=== PATIENT | female | born 1970 | race Caucasian/White ===

== ENCOUNTER 2016-09-09 17:51 | Inpatient (IN) | payer OTHER ==
[~2016-09-09 17:51] MED LIST: PIPERACILLIN/TAZOB 3.375 GM/50 ML PRE-DOCKED IVPB ONE
[2016-09-09] MEDS ORDERED: ONDANSETRON 4 MG/2 ML VIAL IVPB PRN (18:10)
[2016-09-09] MEDS ORDERED: SODIUM CHLORIDE 1,000 ML IV SCH (18:15)
[2016-09-09 18:18] VITALS: BMI 24.0
[2016-09-09] MEDS ORDERED: SODIUM CHLORIDE 500 ML IV STA ×2 (18:34→19:08)
--- NOTE | 2016-09-09 18:40 | CONSULT ---
Consultation: REQUESTING PROVIDER: CONSULT REQUEST: We have been asked to medically evaluate this patient for ( specify). HISTORY OF PRESENT ILLNESS: 46 /y o f with PMH of cervical cancer s/p tracheolectomy , lap band ligation, cholecystectomy was transferred from [facility]. Patient states that she had vomiting, pain abdomen and diarrhoea which started on wednesday. Patient states that she ate her food and after 2 hour she had vomiting, vomiting contain undigested food particles, not foul smelling. Patient had couple of episodes of vomiting after that. patient also states that she had pain abdomen which started after vomiting and is present all over the abdomen 8/10 in intensity, non radiating, get relieved by pain mediactions, sharp in quality, constant in nature. Patient also states that she had 2 episodes of diarrhoea on wednesday and then she didnt have any bowel movements. patient is not passing flatus, Denies abdominal distension, blood in stool , mucus in stool. She also reports shaking chills 2 days ago. Denies eating out in restaurant. Patient states that she was admitted in [facility] yesterday and after getting medicines her pain, nausea and vomiting had decreased. patient was started on zosyn in [facility] denies burning micturatrtion, chest pain, sob. PSH : lap band, cholecystectomy, cervical cerclage, appendectomy PMH: cervical cancer smoking : stopped 5 years ago, smoked for 10 years ( 1/2 pack a day ) alcohol: occasional REVIEW OF SYSTEMS: CONSTITUTIONAL: Absent: fever, chills, diaphoresis, generalized weakness, malaise, loss of appetite, weight change HEENT: Absent: rhinorrhea, CARDIOVASCULAR: Absent: chest pain, syncope, palpitations, peripheral edema RESPIRATORY: Absent: cough, shortness of breath, dyspnea with exertion, orthopnea, wheezing, stridor, hemoptysis GASTROINTESTINAL: Absent: abdominal pain, abdominal distension, nausea, vomiting, diarrhea, constipation, melena, hematochezia GENITOURINARY: Absent: dysuria, frequency, urgency, hesitancy, hematuria, flank pain, genital pain MUSCULOSKELETAL: Absent: myalgia, arthralgia, joint swelling, back pain, neck pain SKIN: Absent: rash, itching, pallor HEMATOLOGIC/IMMUNOLOGIC: Absent: easy bleeding, easy bruising, ENDOCRINE: Absent: unexplained weight gain, unexplained weight loss, NEUROLOGIC: Absent: headache, focal weakness or paresthesias, dizziness, unsteady gait, PSYCHIATRIC: Absent: anxiety, depression, PHYSICAL EXAMINATION Vital Signs - 24 hr 09/09/16 18:09 Temperature 98.9 F Pulse Rate 93 H Respiratory 18 Rate Blood Pressure 82/59 GENERAL: Awake, alert, and fully oriented, in no acute distress. HEAD: Normal with no signs of trauma. EYES: Pupils equal, round and reactive to light, sclera anicteric, conjunctiva clear. No lid lag. EARS, NOSE, THROAT: Ears normal, nares patent, oropharynx clear without exudates. Dry mucous membranes. NECK: Normal range of motion, LUNGS: Breath sounds equal, clear to auscultation bilaterally. No wheezes, and no crackles. HEART: s1s2 normal, tachycardia, non murmur ABDOMEN: Soft, non distended, tenderness in b/l lower quadrant of abdomen and supra pubic area, no guarding, no rigidity, Bowel sounds absent. MUSCULOSKELETAL: Normal range of motion at all joints. No bony deformities or tenderness. No CVA tenderness. UPPER EXTREMITIES: 2+ pulses, warm, well-perfused. No cyanosis. No clubbing No peripheral edema. LOWER EXTREMITIES: 2+ pulses, warm, well-perfused. No calf tenderness. No peripheral edema. NEUROLOGICAL: Cranial nerves II-XII intact. Normal speech. PSYCHIATRIC: Cooperative. Good eye contact. SKIN: Warm, dry, normal turgor, Active Medications Generic Name Dose Route Start Last Admin Trade Name Freq PRN Reason Stop Dose Admin Chlorhexidine Gluconate 1 applic 09/09/16 22:00 Hibiclens For Decolonization - TP HS KAVIN Enoxaparin Sodium 40 mg 09/10/16 10:00 Lovenox - SQ DAILY KAVIN Pantoprazole Sodium 40 mg/ 100 mls @ 200 mls/hr 09/10/16 10:00 Sodium Chloride IVPB DAILY KAVIN Sodium Chloride 1,000 mls @ 125 mls/hr 09/09/16 18:15 Normal Saline - IV ASDIR KAVIN Metronidazole 100 mls @ 100 mls/hr 09/10/16 02:00 Flagyl 500mg Premixed Ivpb - IVPB Q8H-IV KAVIN Morphine Sulfate 4 mg 09/09/16 18:10 Morphine Injection - IVPUSH Q6H PRN PAIN Mupirocin 1 applic 09/09/16 22:00 Bactroban Ointment (For Decolonization) - NS 09/14/16 21:59 BID KAVIN Ondansetron HCl 4 mg 09/09/16 18:10 Zofran Injection IVPB Q6H PRN NAUSEA Piperacillin Sod/Tazobactam Sod 3.375 gm 09/10/16 02:00 Zosyn 3.375gm Ivpb (Pre-Docked) IVPB 09/10/16 02:01 ONCE ONE Protocol [facility] reports 09/08/16 wbc 19.8 hb 12.8 [id number] na 136, bun 21, cr 1.29, lactic acid 2.1 lipase 23 amylase 30 alk phos [address] abdomen from [facility] : mild ascities and mucosal thickening of the small bowel loops. enterocolitis can not be excluded. ASSESSMENT/PLAN: severe sepsis with pain abdomen, nausea, vomiting wbc 19, bp 82/59, lactic acid 2.1, tachycardia Iv fluid 125ml/hr ns Iv antibiotics zosyn and metronidazole monitor vitals monitor intake/ output follow cbc, cmp, mg, phos, ua, amylase, lipase, lactic acid follow X ray abdomen keep map > 65 follow blood culture, urine culture follow stool for ova, parasite, wbc mophine 4mg q6h prn for pain zofran for nausea and vomiting bunny could be pre renal IV fluid 125 ml/hr monitor creatnine avoid nephrotoxic drugs fluid : ns 125 ml/hr electrolyte ; follow nutrition ; npo for now dvt pro: lovenox gi pro ; protonix dispo: admit in icu Dispo: We will continue to follow the patient. Thank you for this consultative opportunity. Visit type - Emergency Visit Emergency Visit: Yes ED Registration Date: 09/09/16 Care time: The patient presented to the Emergency Department on the above date and was hospitalized for further evaluation of their emergent condition. - New Patient This patient is new to me today: Yes Date on this admission: 09/09/16 - Critical Care Critical Care patient: Yes Total Critical Care Time (in minutes): 60 Critical Care Statement: The care of this patient involved high complexity decision making to prevent further life threatening deterioration of the patient 's condition and/or to evalute & treat vital organ system(s) failure or risk of failure.
[2016-09-09] MEDS ORDERED: SODIUM CHLORIDE 1,000 ML IV STA ×2 (18:58→19:00)
[2016-09-09] MEDS ORDERED: PIPERACILLIN/TAZOB 3.375 GM/50 ML PRE-DOCKED IVPB ONE (19:15)
[2016-09-09] MEDS ORDERED: METRONIDAZOLE 500 MG PREMIXED 100 ML IVPB SCH (19:15)
--- NOTE | 2016-09-09 19:19 | CONSULT ---
Consult - text type - Consultation Consultation Note: 46 y.o. female with lap-band for 2 years Pt presents to [facility] 09/08/16 with N/V and lower abdominal pain Pt had pulse of 114, BP of 89/59 (on 09/09/16) Pt received IV fluid, IV Zosyn Initial labs showed WBC of 19.8 Today, WBC was 7.9 However , BUN/CR increased to 21/1.299FROM 18/1.13) CT scan at [facility] showed inflammation around the band, dilated SB loops ( ? ileus) No obvious signs of abscess Past History: Pt with band slippage on x-ray on 07/24/16 Insurance approval obtained AND BAND SCHEDULED TO BE REVISED ON 09/10/16 Pt transferred from [facility] at 5:30 PM Pt awake, moderate discomfort from generalized abdominal pain Pt states she is hungry, thirsty [id number], BP-89/54 P/E- Abd- distended, slight voluntary guarding, mild tenderness on palpation in RLQ and LLQ Discussed with Dr Barboza, pt's PCP Will give IV fluid bolus Will re-start Zosyn Q8H Will check labs I- Sepsis, possible secondary to Lap-Band P- OR on 09/10 for Band Revision/Possible Band Removal Cont IV antibiotics IV fluids to normalize labs, V/S Discussed at length with pt and . They understand that band may have to be removed
[2016-09-09] MEDS ORDERED: HYDROmorphone HCL CARPU-JECT 1 MG/1 ML DISP.SYRIN IVPUSH PRN (19:24)
[2016-09-09 19:55] LABS: MCH 29.3 pg (25.7-33.7); MCHC 33.7 g/dl (32.0-36.0); MEAN CELL VOLUME 86.8 fl (80-96); MEAN PLT VOLUME 7.9 fl (7.5-11.1); PLATELET COUNT 268 K/MM3 (134-434); RDW 14.2 % (11.6-15.6); WHITE BLOOD COUNT 13.4 K/mm3 (4.0-10.0)
[2016-09-09 20:08] LABS: INR 1.55 (0.82-1.09); PROTHROMBIN TIME (PATIENT) 17.2 SEC (9.98-11.88)
[2016-09-09 20:11] LABS: ACTIVATED PTT 30.6 SECONDS (26.9-34.4)
--- NOTE | 2016-09-09 20:29 | CONSULT ---
Consult Consult Specialty:: Pulm/CC - History of Present Illness History of Present Illness: Pt is a 46yr old woman with PMHx including cervical cancer now s/p tracheolectomy, cholestcystectomy and lap band ligation with slippage shown on xray from 07/24 (per report). Pt was scheduled for revision of lapband on 09/[address] Ware that she had flu-like symptoms since Wednesday and was concerned about having procedure while sick. At [facility] on 09/08 pt with tachycardia to 114, hypotension to 89/59 on 09/09 and leukocytosis. Pt transferred to [facility] ICU for further management. Upon assessment in the ICU pt denies current chest pain/sob/n/v. Pt states she had diarrhea that stopped on Wednesday and has not had a bowel movement or eaten since, endorses being hungry. - History Source History Provided By: Patient, Medical Record Limitations to Obtaining History: No Limitations - Past Medical History ...LMP: 12/13/14 ...: No - Alcohol/Substance Use Hx Alcohol Use: No - Smoking History Smoking history: Former smoker Have you smoked in the past 12 months: No Aproximately how many cigarettes per day: 10 If you are a former smoker, when did you quit?: 5 yrs.ago Home Medications - Allergies Allergies/Adverse Reactions: Allergies Allergy/AdvReac Type Severity Reaction Status Date / Time No Known Allergies Allergy Verified 01/01/15 09:57 - Home Medications Home Medications: Ambulatory Orders Ascorbic Acid [Vitamin C -] 500 mg PO DAILY 01/01/15 Calcium Carbonate/Vitamin D3 [Calcium 600 with Vit D Tab] 1 each PO DAILY Krill/Om-3/Dha/Epa/Phospho/Ast [Krill Oil 500 mg Softgel] 1 each PO DAILY Multivitamins [Tab-A-Vit -] 1 tab PO DAILY 01/01/15 Vitamin E 1,000 unit PO DAILY 01/01/15 Oxycodone HCl/Acetaminophen [Percocet 5-325 mg Tablet] 1 tab PO Q6H PRN #20 tablet MDD 4 01/27/16 Review of Systems - Review of Systems Cardiovascular: reports: Shortness of Breath. denies: Chest Pain Respiratory: reports: SOB Gastrointestinal: reports: Abdominal Pain, Diarrhea Genitourinary: denies: Dysuria Physical Exam Vital Signs: Vital Signs Period Temp Pulse Resp BP Sys/Peng Pulse Ox Last 24 Hr 98.9 F 93-99 18-20 82-89/54-59 Intake & Output 09/06/16 09/07/16 09/08/16 09/09/16 23:59 23:59 23:59 23:59 Weight 115 lb Constitutional: Yes: Well Nourished, Anxious Eyes: Yes: WNL, PERRL HENT: Yes: Atraumatic Neck: Yes: Trachea Midline Cardiovascular: Yes: Tachycardia (low 100s, sinus on tele), S1, S2 Respiratory: No: Rales, Rhonchi, SOB, Wheezes Gastrointestinal: Yes: Normal Bowel Sounds, Soft, Tenderness (diffuse) ...Rectal Exam: Yes: Deferred Musculoskeletal: Yes: WNL Extremities: Yes: WNL Edema: No Peripheral Pulses WNL: (+2 bilateral pedal pulses) Integumentary: Yes: WNL Neurological: Yes: WNL Psychiatric: Yes: WNL Labs: Abnormal Lab Results 09/09/16 09/09/16 19:00 19:00 WBC 13.4 H RBC 3.26 L Hgb 9.5 L Hct 28.3 L INR 1.55 H Assessment/Plan Pt is a 46yr old woman with PMHx including cervical cancer now s/p tracheolectomy, cholestcystectomy and lap band ligation with slippage. Pt now in the ICU for management of sepsis (likely abdominal source) pending surgical intervention on 09/10. Pulm: -o2 support prn for sat >94% -Incentive spirometer ID: -f/u cultures -Continue Zosyn/Flagyl -f/u lactic acid Renal -IVF -Replete electrolytes prn -I/Os Cardiac -Tachycardia likely in setting of dehydration and discomfort -EKG -f/u enzymes Surgery: -NPO after midnight for procedure 09/10 -Dr. Ware following Neuro -Pain management Prophylactic -DVT
[2016-09-09 20:39] LABS: ALBUMIN 2.1 g/dl (3.4-5.0); CALCIUM 7.2 mg/dL (8.5-10.1); MAGNESIUM 1.4 mg/dL (1.8-2.4); TOT PROT 5.3 g/dl (6.4-8.2)
[2016-09-09 20:43] LABS: BILIRUBIN,TOTAL 0.5 mg/dL (0.2-1.0); CREATININE 1.1 mg/dL (0.55-1.02)
[2016-09-09 20:57] LABS: TROPONIN I < 0.02 ng/ml (0.00-0.05)
[2016-09-09] MEDS ORDERED: MAGNESIUM SULF 50% (8.12 MEQ/2 ML-1 GM VIAL) IVPB ONE (21:11)
[2016-09-09] MEDS ORDERED: CHLORHEXIDINE GLUCONATE 4% CLEANSER FOR DECOLONIZATION TP SCH (22:00)
[2016-09-09] MEDS: METRONIDAZOLE 500 MG PREMIXED 100 ML IVPB SCH (22:06)
[2016-09-09] MEDS: morphine CARPU-JECT 4 MG/1 ML DISP.SYRIN IVPUSH PRN (22:26)
[2016-09-09] MEDS: MUPIROCIN 2% TOPICAL OINTMENT FOR DECOLONIZATION NS SCH (22:26)
[2016-09-09] MEDS ORDERED: SIMETHICONE 80 MG TAB.CHEW (FP) PO ONE (23:00)
[2016-09-10] MEDS ORDERED: PIPERACILLIN/TAZOB 3.375 GM 50 ML IVPB SCH (02:00)
[2016-09-10] MEDS: METRONIDAZOLE 500 MG PREMIXED 100 ML IVPB SCH (03:16)
[2016-09-10] MEDS: morphine CARPU-JECT 4 MG/1 ML DISP.SYRIN IVPUSH PRN ×2 (03:16→09:09)
[2016-09-10 04:02] LABS: URINE APPEARANCE CLEAR; URINE BILIRUBIN NEGATIVE (NEGATIVE); URINE BLOOD 1+ (NEGATIVE); URINE COLOR AMBER; URINE GLUCOSE (UA) NEGATIVE (NEGATIVE); URINE KETONE TRACE (NEGATIVE); URINE LEUK ESTERASE TRACE (NEGATIVE); URINE NITRITE NEGATIVE (NEGATIVE); URINE PROTEIN 2+ (NEGATIVE); URINE UROBILINOGEN NEGATIVE E.U./dl (0.2-1.0)
[2016-09-10 04:05] LABS: URINE MUCUS RARE; URINE RBC 6 /hpf (0-3); URINE WBC 9 /hpf (3-5)
[2016-09-10 06:19] LABS: MCH 29.6 pg (25.7-33.7); MCHC 33.7 g/dl (32.0-36.0); MEAN CELL VOLUME 87.8 fl (80-96); MEAN PLT VOLUME 8.1 fl (7.5-11.1); PLATELET COUNT 267 K/MM3 (134-434); RDW 14.4 % (11.6-15.6); WHITE BLOOD COUNT 12.9 K/mm3 (4.0-10.0)
[2016-09-10 06:32] LABS: INR 1.36 (0.82-1.09)
[2016-09-10 06:35] LABS: ACTIVATED PTT 29.6 SECONDS (26.9-34.4)
[2016-09-10 06:54] LABS: ALBUMIN 1.9 g/dl (3.4-5.0); ALK PHOS 59 U/L (45-117); ANION GAP 12 (8-16); BILIRUBIN,TOTAL 0.6 mg/dL (0.2-1.0); CALCIUM 7.1 mg/dL (8.5-10.1); CO2 21 mmol/L (21-32); CREATININE 0.8 mg/dL (0.55-1.02); GLUCOSE,RANDOM 107 mg/dL (74-106); PHOSPHOROUS 2.1 mg/dL (2.5-4.9); SGOT/AST 8 U/L (15-37); SGPT/ALT 8 U/L (12-78); TOT PROT 4.9 g/dl (6.4-8.2)
--- NOTE | 2016-09-10 07:32 | PN ---
Progress Note, Physician Chief Complaint: ID Full note dictated Appears comfortable currently albeit lower abd pain NO Fever - Current Medication List Current Medications: Active Medications Chlorhexidine Gluconate (Hibiclens For Decolonization -) 1 applic TP HS [facility] Last Admin: 09/09/16 23:08 Dose: 1 applic Hydromorphone HCl (Dilaudid Injection -) 0.5 mg IVPUSH Q4H PRN PRN Reason: PAIN Pantoprazole Sodium (Protonix 40mg Ivpb (Pre-Docked)) 100 mls @ 200 mls/hr IVPB DAILY KAVIN Sodium Chloride (Normal Saline -) 1,000 mls @ 125 mls/hr IV ASDIR KAVIN Last Admin: 09/09/16 19:08 Dose: 125 mls/hr Piperacillin Sod/Tazobactam Sod (Zosyn 3.375gm Ivpb (Pre-Docked)) 50 mls @ 100 mls/hr IVPB Q8H-IV KAVIN PRN Reason: Protocol Metronidazole (Flagyl 500mg Premixed Ivpb -) 100 mls @ 100 mls/hr IVPB Q6H-IV KAVIN Last Admin: 09/10/16 03:16 Dose: 100 mls/hr Morphine Sulfate (Morphine Injection -) 4 mg IVPUSH Q6H PRN PRN Reason: PAIN Last Admin: 09/10/16 03:16 Dose: 4 mg Mupirocin (Bactroban Ointment (For Decolonization) -) 1 applic NS BID [facility] Stop: 09/14/16 21:59 Last Admin: 09/09/16 22:26 Dose: 1 applic Ondansetron HCl (Zofran Injection) 4 mg IVPB Q6H PRN PRN Reason: NAUSEA Last Admin: 09/09/16 22:26 Dose: 4 mg - Objective Vital Signs: Vital Signs Temperature 98.8 F 09/10/16 06:00 Pulse Rate 92 H 09/10/16 06:00 Respiratory Rate 24 09/10/16 06:00 Blood Pressure 105/75 09/10/16 06:00 O2 Sat by Pulse Oximetry (%) 99 09/09/16 21:00 Constitutional: Yes: Well Nourished, No Distress Cardiovascular: Yes: S1, S2 Respiratory: Yes: WNL, Regular, CTA Bilaterally Gastrointestinal: Yes: WNL, Normal Bowel Sounds, Soft, Tenderness Edema: No Labs: CBC, BMP 09/10/16 05:05 09/10/16 05:05 INR, PTT INR 1.36 (0.82-1.09) H 09/10/16 05:05 Problem List - Problems (1) Sepsis Code(s): A41.9 - SEPSIS, UNSPECIFIED ORGANISM (2) Admission for adjustment of gastric lap band Code(s): Z46.51 - ENCOUNTER FOR FITTING AND ADJUSTMENT OF GASTRIC LAP BAND Assessment/Plan Microbiology Laboratory Tests 09/09/16 09/09/16 09/10/16 19:00 19:00 03:40 WBC 13.4 H Hgb 9.5 L Hct 28.3 L Plt Count 268 Creat Clearance w eGFR 53.47 C-Reactive Protein Urine RBC 6 Urine WBC 9 09/10/16 05:05 WBC Hgb Hct Plt Count Creat Clearance w eGFR C-Reactive Protein 40.9 H Urine RBC Urine WBC Assessment Admitted for Lap band with sepsis Polymicrobial coverage warrented CRP 40 ! Plan Continue Zosyn alone For surgery per Dr Jeanie Merino MD
[2016-09-10] MEDS ORDERED: BUPIVACAINE HCL/PF 0.5% (5MG/ML) 10 ML VIAL ONE (07:49)
[2016-09-10] MEDS ORDERED: PT OWN MED DRAWER 7, Y5N ONE (09:06)
[2016-09-10] MEDS: MUPIROCIN 2% TOPICAL OINTMENT FOR DECOLONIZATION NS SCH ×2 (09:10→21:56)
[2016-09-10] MEDS: PIPERACILLIN/TAZOB 4.5 GM 100 ML IVPB SCH (09:32)
--- NOTE | 2016-09-10 09:38 | HP ---
Admitting History and Physical - Primary Care Physician PCP: Oli Barboza - Admission Chief Complaint: TRANSFERRED FROM [facility] FOR SEPSIS/ABD LAPBAND DISPPLACEMENT. History of Present Illness: 46 /y o f with PMH of cervical cancer s/p tracheolectomy , lap band ligation, cholecystectomy was transferred from [facility]. Patient states that she had vomiting, pain abdomen and diarrhoea which started on wednesday. Patient states that she ate her food and after 2 hour she had vomiting, vomiting contain undigested food particles, not foul smelling. Patient had couple of episodes of vomiting after that. patient also states that she had pain abdomen which started after vomiting and is present all over the abdomen 8 /10 in intensity, non radiating, get relieved by pain mediactions, sharp in quality, constant in nature. Patient also states that she had 2 episodes of diarrhoea on wednesday and then she didnt have any bowel movements. patient is not passing flatus, Denies abdominal distension, blood in stool , mucus in stool. She also reports shaking chills 2 days ago. Denies eating out in restaurant. Patient states that she was admitted in [facility] yesterday and after getting medicines her pain, nausea and vomiting had decreased. History Source: Patient, Medical Record, Transfer Record - Past Medical History ...LMP: 12/13/14 ...: No - Smoking History Smoking history: Former smoker Have you smoked in the past 12 months: No Aproximately how many cigarettes per day: 10 If you are a former smoker, when did you quit?: 5 yrs.ago - Alcohol/Substance Use Hx Alcohol Use: No Home Medications - Allergies Allergies/Adverse Reactions: Allergies Allergy/AdvReac Type Severity Reaction Status Date / Time No Known Allergies Allergy Verified 01/01/15 09:57 - Home Medications Home Medications: Ambulatory Orders Ascorbic Acid [Vitamin C -] 500 mg PO DAILY 01/01/15 Calcium Carbonate/Vitamin D3 [Calcium 600 with Vit D Tab] 1 each PO DAILY Krill/Om-3/Dha/Epa/Phospho/Ast [Krill Oil 500 mg Softgel] 1 each PO DAILY Multivitamins [Tab-A-Vit -] 1 tab PO DAILY 01/01/15 Vitamin E 1,000 unit PO DAILY 01/01/15 Oxycodone HCl/Acetaminophen [Percocet 5-325 mg Tablet] 1 tab PO Q6H PRN #20 tablet MDD 4 01/27/16 Review of Systems - Review of Systems Constitutional: reports: Loss of Appetite, Malaise, Weakness Eyes: reports: No Symptoms HENT: reports: No Symptoms Neck: reports: No Symptoms Cardiovascular: reports: No Symptoms Respiratory: reports: No Symptoms Gastrointestinal: reports: Abdominal Pain, Indigestion, Vomiting, Other Genitourinary: reports: No Symptoms Musculoskeletal: reports: Joint Pain, Muscle Weakness Integumentary: reports: No Symptoms Neurological: reports: No Symptoms Endocrine: reports: No Symptoms Hematology/Lymphatic: reports: No Symptoms Psychiatric: reports: No Symptoms Physical Examination Vital Signs: Vital Signs Temperature 98.8 F 09/10/16 06:00 Pulse Rate 90 09/10/16 08:00 Respiratory Rate 24 09/10/16 08:00 Blood Pressure 111/62 09/10/16 08:00 O2 Sat by Pulse Oximetry (%) 99 09/09/16 21:00 Constitutional: Yes: Mild Distress Eyes: Yes: WNL HENT: Yes: WNL Neck: Yes: WNL Cardiovascular: Yes: WNL Respiratory: Yes: WNL Gastrointestinal: Yes: Tenderness, Tenderness, Epigastrium, Tenderness, Rebound Renal/: Yes: WNL Musculoskeletal: Yes: WNL Extremities: Yes: WNL Edema: No Peripheral Pulses WNL: Yes Integumentary: Yes: WNL Wound/Incision: Yes: Clean/Dry Neurological: Yes: WNL ...Motor Strength: WNL Psychiatric: Yes: WNL Labs: CBC, BMP 09/10/16 05:05 09/10/16 05:05 Problem List - Problems (1) Admission for adjustment of gastric lap band Code(s): Z46.51 - ENCOUNTER FOR FITTING AND ADJUSTMENT OF GASTRIC LAP BAND (2) Sepsis Code(s): A41.9 - SEPSIS, UNSPECIFIED ORGANISM Qualifiers: Sepsis type: sepsis due to unspecified organism Qualified Code(s): A41.9 - Sepsis, unspecified organism Assessment/Plan ID CONSULT CHECK CULTURES IV ABX MEDICALLY CLEARED FOR LAPBAND REMOVAL SURGERY FOR THE BENEFIT AT THIS TIME OUTWEIGHS THE RISK. IVF BP ALWAYS SYSTOLIC APPROX 100MMHG
[2016-09-10 09:50] LABS: ERYTHROCYTE SEDIMENTATION RATE 110 mm/hr (0-20)
[2016-09-10] MEDS ORDERED: ENOXAPARIN NA (PORCINE) 40 MG/0.4 ML DISP.SYRIN SQ SCH (10:00)
[2016-09-10] MEDS ORDERED: PANTOPRAZOLE SODIUM 100 ML IVPB SCH (10:00)
[2016-09-10] MEDS ORDERED: POLYMYXIN B SULFATE 500,000 UNIT VIAL IVPB ONE (10:45)
--- NOTE | 2016-09-10 12:39 | PN ---
Teaching Attending Note Name of Resident: Cornelio Bowman ATTENDING PHYSICIAN STATEMENT I saw and evaluated the patient. I reviewed the resident's note and discussed the case with the resident. I agree with the resident's findings and plan as documented. SUBJECTIVE: Pt seen and examined in the ICU. Abdominal pain controlled on current regimen. No fevers or chills. No nausea or vomiting. +flatus but no BM. OBJECTIVE: Last Vital Signs Temp Pulse Resp BP Pulse Ox 97.2 F L 90 20 107/78 99 09/10/16 10:00 09/10/16 10:00 09/10/16 10:00 09/10/16 10:00 09/09/16 21:00 Intake & Output 09/07/16 09/08/16 09/09/16 09/10/16 23:59 23:59 23:59 23:59 Intake Total 1200 Balance 1200 Weight 115 lb Gen: NAD at rest Heart: RRR Lung: decreased breath sounds at the bases Abd: diffusely tender, no rebound Ext: no edema CBC, BMP 09/10/16 05:05 09/10/16 05:05 Active Medications Chlorhexidine Gluconate (Hibiclens For Decolonization -) 1 applic TP HS [facility] Last Admin: 09/09/16 23:08 Dose: 1 applic Hydromorphone HCl (Dilaudid Injection -) 0.5 mg IVPUSH Q4H PRN PRN Reason: PAIN Pantoprazole Sodium (Protonix 40mg Ivpb (Pre-Docked)) 100 mls @ 200 mls/hr IVPB DAILY [facility] Last Admin: 09/10/16 09:10 Dose: 200 mls/hr Sodium Chloride (Normal Saline -) 1,000 mls @ 125 mls/hr IV ASDIR KAVIN Last Admin: 09/09/16 19:08 Dose: 125 mls/hr Piperacillin Sod/Tazobactam Sod (Zosyn 4.5gm Ivpb (Pre-Docked)) 100 mls @ 200 mls/hr IVPB Q8H-IV KAVIN PRN Reason: Protocol Last Admin: 09/10/16 09:32 Dose: 200 mls/hr Morphine Sulfate (Morphine Injection -) 4 mg IVPUSH Q6H PRN PRN Reason: PAIN Last Admin: 09/10/16 09:09 Dose: 4 mg Mupirocin (Bactroban Ointment (For Decolonization) -) 1 applic NS BID KAVIN Stop: 09/14/16 21:59 Last Admin: 09/10/16 09:10 Dose: 1 applic Ondansetron HCl (Zofran Injection) 4 mg IVPB Q6H PRN PRN Reason: NAUSEA Last Admin: 09/09/16 22:26 Dose: 4 mg ASSESSMENT AND PLAN: h/o Gastric Lap Band now with suspected erosion/slippage r/o Intra-abdominal Sepsis Lactic Acidosis resolved Acute Kidney Injury improving h/o Cervical Ca - continue empiric antibiotics - f/u cultures - IVF - pain control - for OR today - incentive spirometry - NPO - DVT prophylaxis
--- NOTE | 2016-09-10 12:43 | PN ---
Physical Exam: SUBJECTIVE: Patient seen and examined patient lying comfortably in bed. still have pain in RLQ and LLQ, tenderness, pain decreases with meds n/v + patient scheduled for surgery for today. OBJECTIVE: Vital Signs Period Temp Pulse Resp BP Sys/Peng Pulse Ox Last 24 Hr 97.2 F-98.9 F 85-99 18-29 82-111/54-78 99 GENERAL: Awake, alert, and fully oriented, in no acute distress. HEAD: Normal with no signs of trauma. EARS, NOSE, THROAT: oropharynx clear without exudates. Dry mucous membranes. NECK: Normal range of motion, LUNGS: Breath sounds equal, clear to auscultation bilaterally. No wheezes, and no crackles. HEART: s1s2 normal, tachycardia, non murmur ABDOMEN: Soft, non distended, tenderness in b/l lower quadrant of abdomen and supra pubic area, no guarding, no rigidity, Bowel sounds present MUSCULOSKELETAL: Normal range of motion at all joints. No bony deformities or tenderness. No CVA tenderness. UPPER EXTREMITIES: 2+ pulses, warm, well-perfused. No cyanosis. No clubbing No peripheral edema. LOWER EXTREMITIES: 2+ pulses, warm, well-perfused. No calf tenderness. No peripheral edema. NEUROLOGICAL: Cranial nerves II-XII intact. Normal speech. PSYCHIATRIC: Cooperative. Good eye contact. SKIN: Warm, dry, normal turgor, Laboratory Results - last 24 hr 09/09/16 09/09/16 09/09/16 19:00 19:00 19:00 WBC 13.4 H RBC 3.26 L Hgb 9.5 L Hct 28.3 L MCV 86.8 MCHC 33.7 RDW 14.2 Plt Count 268 MPV 7.9 Neutrophils % Y Lymphocytes % Y ESR INR 1.55 H PTT (Actin FS) 30.6 Sodium 139 Potassium 3.7 Chloride 105 Carbon Dioxide 19 L Anion Gap 15 BUN 20 H Creatinine 1.1 H Creat Clearance w eGFR 53.47 Random Glucose 96 Lactic Acid Calcium 7.2 L Phosphorus 3.0 Magnesium 1.4 L Total Bilirubin 0.5 AST 8 L ALT 12 Alkaline Phosphatase 73 Creatine Kinase Troponin I C-Reactive Protein B-Natriuretic Peptide Total Protein 5.3 L Albumin 2.1 L Total Amylase 10 L Lipase 30 L Urine Color Urine Appearance Urine pH Ur Specific [place] Urine Protein Urine Glucose (UA) Urine Ketones Urine Blood Urine Nitrite Urine Bilirubin Urine Urobilinogen Ur Leukocyte Esterase Urine RBC Urine WBC Ur Epithelial Cells Urine Mucus Blood Type Antibody Screen Antibody Identification Antigen Identification 09/09/16 09/09/16 09/09/16 19:00 19:00 19:20 WBC RBC Hgb Hct MCV MCHC RDW Plt Count MPV Neutrophils % Lymphocytes % ESR INR PTT (Actin FS) Sodium Potassium Chloride Carbon Dioxide Anion Gap BUN Creatinine Creat Clearance w eGFR Random Glucose Lactic Acid 1.583 Calcium Phosphorus Magnesium Total Bilirubin AST ALT Alkaline Phosphatase Creatine Kinase Troponin I C-Reactive Protein B-Natriuretic Peptide 1085.05 H Total Protein Albumin Total Amylase Lipase Urine Color Urine Appearance Urine pH Ur Specific [place] Urine Protein Urine Glucose (UA) Urine Ketones Urine Blood Urine Nitrite Urine Bilirubin Urine Urobilinogen Ur Leukocyte Esterase Urine RBC Urine WBC Ur Epithelial Cells Urine Mucus Blood Type A POSITIVE Antibody Screen Positive H Antibody Identification Anti-k Antigen Identification Y 09/09/16 09/10/16 09/10/16 19:20 03:40 05:05 WBC 12.9 H RBC 3.23 L Hgb 9.6 L Hct 28.4 L MCV 87.8 MCHC 33.7 RDW 14.4 Plt Count 267 MPV 8.1 Neutrophils % Lymphocytes % ESR 110 H INR PTT (Actin FS) Sodium Potassium Chloride Carbon Dioxide Anion Gap BUN Creatinine Creat Clearance w eGFR Random Glucose Lactic Acid Calcium Phosphorus Magnesium Total Bilirubin AST ALT Alkaline Phosphatase Creatine Kinase 26 Troponin I < 0.02 C-Reactive Protein B-Natriuretic Peptide Total Protein Albumin Total Amylase Lipase Urine Color [place] Urine Appearance Clear Urine pH 5.0 Ur Specific [place] 1.034 Urine Protein 2+ H Urine Glucose (UA) Negative Urine Ketones Trace H Urine Blood 1+ H Urine Nitrite Negative Urine Bilirubin Negative Urine Urobilinogen Negative Ur Leukocyte Esterase Trace H Urine RBC 6 Urine WBC 9 Ur Epithelial Cells Rare Urine Mucus Rare Blood Type Antibody Screen Antibody Identification Antigen Identification 09/10/16 09/10/16 09/10/16 05:05 05:05 05:05 WBC RBC Hgb Hct MCV MCHC RDW Plt Count MPV Neutrophils % Lymphocytes % ESR INR 1.36 H PTT (Actin FS) 29.6 Sodium 139 Potassium 3.5 Chloride 106 Carbon Dioxide 21 Anion Gap 12 BUN 16 Creatinine 0.8 D Creat Clearance w eGFR > 60 Random Glucose 107 H Lactic Acid Calcium 7.1 L Phosphorus 2.1 L D Magnesium 2.0 D Total Bilirubin 0.6 AST 8 L ALT 8 L D Alkaline Phosphatase 59 Creatine Kinase Troponin I C-Reactive Protein 40.9 H B-Natriuretic Peptide Total Protein 4.9 L Albumin 1.9 L Total Amylase Lipase Urine Color Urine Appearance Urine pH Ur Specific [place] Urine Protein Urine Glucose (UA) Urine Ketones Urine Blood Urine Nitrite Urine Bilirubin Urine Urobilinogen Ur Leukocyte Esterase Urine RBC Urine WBC Ur Epithelial Cells Urine Mucus Blood Type Antibody Screen Antibody Identification Antigen Identification Active Medications Generic Name Dose Route Start Last Admin Trade Name Freq PRN Reason Stop Dose Admin Chlorhexidine Gluconate 1 applic 09/09/16 22:00 09/09/16 23:08 Hibiclens For Decolonization - TP 1 applic HS KAVIN Administration Hydromorphone HCl 0.5 mg 09/09/16 19:24 Dilaudid Injection - IVPUSH Q4H PRN PAIN Pantoprazole Sodium 100 mls @ 200 mls/hr 09/10/16 10:00 09/10/16 09:10 Protonix 40mg Ivpb (Pre-Docked) IVPB 200 mls/hr DAILY KAVIN Administration Sodium Chloride 1,000 mls @ 125 mls/hr 09/09/16 18:15 09/09/16 19:08 Normal Saline - IV 125 mls/hr ASDIR KAVIN Administration Piperacillin Sod/Tazobactam Sod 100 mls @ 200 mls/hr 09/10/16 10:00 09/10/16 09 :32 Zosyn 4.5gm Ivpb (Pre-Docked) IVPB 200 mls/hr Q8H-IV KAVIN Administration Protocol Morphine Sulfate 4 mg 09/09/16 18:10 09/10/16 09:09 Morphine Injection - IVPUSH 4 mg Q6H PRN Administration PAIN Mupirocin 1 applic 09/09/16 22:00 09/10/16 09:10 Bactroban Ointment (For Decolonization) - NS 09/14/16 21:59 1 applic BID KAVIN Administration Ondansetron HCl 4 mg 09/09/16 18:10 09/09/16 22:26 Zofran Injection IVPB 4 mg Q6H PRN Administration NAUSEA ASSESSMENT/PLAN: sepsis h/o lap gastric band, now suspected slippage and erosion Iv fluid 125ml/hr ns Iv antibiotics zosyn as per ID monitor vitals monitor intake/ output keep map > 65 follow blood culture, urine culture mophine 4mg q3h prn for pain zofran for nausea and vomiting lactic acid improved bunny improved could be pre renal IV fluid 125 ml/hr monitor creatnine avoid nephrotoxic drugs fluid : ns 125 ml/hr electrolyte ; follow nutrition ; npo for now dvt pro: lovenox gi pro ; protonix dispo: admit in icu Dispo: We will continue to follow the patient. Thank you for this consultative opportunity. Visit type - Emergency Visit Emergency Visit: Yes ED Registration Date: 09/09/16 Care time: The patient presented to the Emergency Department on the above date and was hospitalized for further evaluation of their emergent condition. - New Patient This patient is new to me today: No - Critical Care Critical Care patient: Yes Total Critical Care Time (in minutes): 45 Critical Care Statement: The care of this patient involved high complexity decision making to prevent further life threatening deterioration of the patient 's condition and/or to evalute & treat vital organ system(s) failure or risk of failure.
[2016-09-10] MEDS ORDERED: HYDROmorphone HCL CARPU-JECT 1 MG/1 ML DISP.SYRIN IVPUSH PRN (12:44)
[2016-09-10] MEDS ORDERED: morphine CARPU-JECT 4 MG/1 ML DISP.SYRIN IVPUSH PRN (12:45)
[2016-09-10] MEDS ORDERED: GENTAMICIN SO4 80 MG/2 ML VIAL ONE (13:03)
[2016-09-10] MEDS ORDERED: MIDAZOLAM HCL 2 MG/2 ML SINGLE DOSE VIAL ONE (14:11)
[2016-09-10] MEDS ORDERED: PROPOFOL 20 ML ONE (14:11)
[2016-09-10] MEDS ORDERED: ROCURONIUM BROMIDE 50 MG/5 ML VIAL ONE ×2 (14:11→16:07)
[2016-09-10] MEDS ORDERED: PROMETHAZINE HCL 25 MG/1 ML VIAL IVPUSH PRN ×3 (14:18→18:51)
[2016-09-10] MEDS ORDERED: ONDANSETRON 4 MG/2 ML VIAL IVPUSH PRN ×3 (14:18→18:32)
[2016-09-10] MEDS ORDERED: ePHEDrine SULFATE 50 MG/1 ML AMPULE ONE (14:29)
[2016-09-10] MEDS ORDERED: LACTATED RINGERS SOLUTION 1,000 ML IV SCH ×2 (14:30→18:30)
[2016-09-10] MEDS ORDERED: ceFAZolin SODIUM 1 GM VIAL IVPB ONE (14:56)
[2016-09-10] MEDS ORDERED: DEXAMETHASONE SOD PHOSPHATE 4 MG/1 ML VIAL ONE ×2 (15:07→15:08)
[2016-09-10] MEDS ORDERED: KETOROLAC TROMETHAMINE 30 MG/1 ML VIAL ONE (15:07)
[2016-09-10] MEDS ORDERED: METOPROLOL TARTRATE 5 MG/5 ML VIAL ONE (15:27)
[2016-09-10] MEDS ORDERED: METHYLENE BLUE 1% 10 MG/1 ML VIAL ONE (16:29)
--- NOTE | 2016-09-10 16:32 | CONS ---
DATE OF CONSULTATION: DATE OF DICTATION: 09/10/2016 This is a 46-year-old female with a gastric sleeve surgery summer who presents to [facility] for evaluation of severe lower abdominal pain and hypotension with sepsis. The patient is known to Dr. Ware who operated on her originally, as well as having done a cholecystectomy on her last summer. An x-ray done in July showed slippage of the gastric sleeve and she was electively to be scheduled for revision. However, 5 days ago, she developed what she described as a flu-like feeling characterized by generalized body aches, chills and onset of severe abdominal pain mostly in the lower abdomen. The pain continued over the next 24 hours, prompting her to take her to [facility] where she was admitted. She is now transferred for consultation with Dr. Ware who saw her in the ICU now and plans on taking her to the operating room for the band to be revised. She was initially hypotensive with a blood pressure of 89/59, but had no fever here. She was empirically placed on piperacillin, tazobactam and metronidazole. She has no cough, urinary complaint, chills, and generally appears comfortable, at the present time. There is no history of recent travel. She lives with her , has a pet dog, and no other unusual hobbies. PAST MEDICAL HISTORY: Includes a trachelectomy for cervical cancer, prior cholecystectomy, and Lap-Band surgery. MEDICATIONS: Include multivitamins and Percocet. ALLERGIES: None known. SOCIAL HISTORY: Non-smoker. No EtOH. No travel. No substance abuse. . FAMILY HISTORY: Reviewed and noncontributory. REVIEW OF SYSTEMS: Respiratory: No cough, shortness of breath, hemoptysis. Cardiac: No history of palpitations, chest pain, heart murmur. GI: Lower abdominal pain with nausea and vomiting. No hematemesis, blood per rectum, diarrhea. : No dysuria, hematuria, or urinary frequency. PHYSICAL EXAMINATION: General: She was a pleasant, alert woman in no acute distress. Vital signs: The temperature 98.2, pulse 92, blood pressure 105/75, respirations 20. Neck: Supple without adenopathy. Lungs: Clear to percussion and auscultation. Heart: S1, S2. Regular rhythm without audible murmur. Abdomen: Soft with positive bowel sounds. The abdomen was distended with some voluntary guarding and mild tenderness in the right lower and left lower quadrant. Extremities: No clubbing, cyanosis or edema. The white count was 13.4, hemoglobin 9.5, platelets of 268. BUN of 20, creatinine of 1.1. Liver enzymes within normal limits. CRP of 41. Urinalysis: RBCs 6, WBCs 9. Blood and urine cultures pending. ASSESSMENT: A 46-year-old female with a history of gastric sleeve surgery, noted to have slippage of the gastric sleeve, presents with sepsis syndrome and severe abdominal pain. She has had a CAT scan of the abdomen done at [facility] which showed inflammation around the band and dilated small-bowel loops with possible ileus, but no obvious collection. PLAN: Blood cultures obtained. She will be empirically treated with piperacillin and tazobactam 4.5 g every 8 hours, and anticipate she will be taken to the operating room per Dr. Ware. I reviewed the papers that came from [facility], but did not see complete labs or blood culture results. She was already treated with antibiotics, prior to admission. KIN DELGADO M.D. [id number]
[2016-09-10] MEDS ORDERED: LIDOCAINE HCL 2% JELLY (5 ML/TUBE) ONE (17:11)
[2016-09-10] MEDS ORDERED: BUPIVACAINE HCL/PF 0.5% (5MG/ML) 10 ML VIAL IJ ONE ×2 (17:48)
[2016-09-10] MEDS ORDERED: GLYCOPYRROLATE 0.2 MG/1 ML VIAL ONE (17:54)
[2016-09-10] MEDS ORDERED: NEOSTIGMINE METHYLSULFATE 0.5 MG/ML - 10 ML MDV ONE (17:54)
[2016-09-10] MEDS ORDERED: TRIMETHOBENZAMIDE HCL 200MG/2ML INJ IM PRN (18:02)
[2016-09-10] MEDS ORDERED: HYDROmorphone HCL CARPU-JECT 1 MG/1 ML DISP.SYRIN IVPUSH ONE (18:30)
[2016-09-10] MEDS ORDERED: HYDROmorphone *PCA* 10MG/50ML DISP.SYRIN PCA ONE (18:31)
[2016-09-10] MEDS ORDERED: HYDROmorphone HCL CARPU-JECT 2 MG/1 ML DISP.SYRIN ONE (18:31)
[2016-09-10] MEDS ORDERED: PROMETHAZINE HCL 25 MG/1 ML VIAL IVPB PRN (18:32)
[2016-09-10] MEDS ORDERED: DEXAMETHASONE SOD PHOSPHATE 4 MG/1 ML VIAL IVPUSH PRN (18:32)
[2016-09-10] MEDS ORDERED: HYDROmorphone *PCA* 10MG/50ML DISP.SYRIN PCA SCH (18:45)
[2016-09-10] MEDS ORDERED: SODIUM CHLORIDE 1,000 ML IV SCH (18:51)
[2016-09-10] MEDS ORDERED: ONDANSETRON 4 MG/2 ML VIAL IVPB PRN (18:51)
[2016-09-10 19:53] LABS: MCH 29.5 pg (25.7-33.7); MCHC 33.8 g/dl (32.0-36.0); MEAN CELL VOLUME 87.4 fl (80-96); MEAN PLT VOLUME 8.1 fl (7.5-11.1); PLATELET COUNT 250 K/MM3 (134-434); RDW 14.4 % (11.6-15.6); WHITE BLOOD COUNT 14.4 K/mm3 (4.0-10.0)
[2016-09-10 20:30] LABS: CALCIUM 7.1 mg/dL (8.5-10.1); COCKROFT - GAULT 82.688; CREATININE 0.7 mg/dL (0.55-1.02)
[2016-09-10 20:52] LABS: PLATELET ESTIMATE ADEQUATE (NORMAL)
[2016-09-10] MEDS: SODIUM CHLORIDE 1,000 ML IV SCH (21:30)
[2016-09-10] MEDS: FAMOTIDINE 20 MG/50 ML IVPB 50 ML IVPB SCH (21:56)
[2016-09-10] MEDS ORDERED: MUPIROCIN 2% TOPICAL OINTMENT FOR DECOLONIZATION NS SCH (22:00)
[2016-09-10] MEDS ORDERED: CHLORHEXIDINE GLUCONATE 4% CLEANSER FOR DECOLONIZATION TP SCH (22:00)
[2016-09-11] MEDS: PIPERACILLIN/TAZOB 4.5 GM 100 ML IVPB SCH ×3 (02:49→17:52)
[2016-09-11 06:44] LABS: MCH 29.6 pg (25.7-33.7); MCHC 33.3 g/dl (32.0-36.0); MEAN CELL VOLUME 88.8 fl (80-96); MEAN PLT VOLUME 8.1 fl (7.5-11.1); PLATELET COUNT 261 K/MM3 (134-434); RDW 14.6 % (11.6-15.6); WHITE BLOOD COUNT 13.6 K/mm3 (4.0-10.0)
[2016-09-11 07:18] LABS: CALCIUM 7.4 mg/dL (8.5-10.1)
[2016-09-11 07:21] LABS: COCKROFT - GAULT 95.098; CREATININE 0.7 mg/dL (0.55-1.02); MAGNESIUM 2.4 mg/dL (1.8-2.4); PHOSPHOROUS 2.2 mg/dL (2.5-4.9)
--- NOTE | 2016-09-11 08:32 | PN ---
Progress Note, Physician Chief Complaint: ID Day 1 post op Patient alert in NAD Patient states there was "pus" upon removal of gastric band - Current Medication List Current Medications: Active Medications Dexamethasone Sodium Phosphate (Decadron Injection -) 4 mg IVPUSH ONCE PRN PRN Reason: NAUSEA AND/OR VOMITING Diphenhydramine HCl (Benadryl Injection -) 12.5 mg IVPUSH ONCE PRN PRN Reason: FOR ITCHING Last Admin: 09/11/16 07:28 Dose: 12.5 mg Fentanyl (Sublimaze Injection -) 50 mcg IVPUSH [id number] PRN PRN Reason: PAIN Stop: 09/13/16 14:19 Hydromorphone HCl (Dilaudid Medical Numerical Control Operator -) 10 mg CLAIMS ADJUSTER SUPERVISOR CLAIMS ADJUSTER SUPERVISOR KAVIN PRN Reason: Protocol Stop: 09/17/16 18:33 Last Admin: 09/10/16 19:00 Dose: 10 mg Famotidine/Sodium Chloride (Pepcid 20 Mg Premixed Ivpb -) 50 mls @ 100 mls/hr IVPB BID [facility] Last Admin: 09/10/16 21:56 Dose: 100 mls/hr Sodium Chloride (Normal Saline -) 1,000 mls @ 150 mls/hr IV ASDIR KAVIN Last Admin: 09/10/16 21:30 Dose: 150 mls/hr Pantoprazole Sodium (Protonix 40mg Ivpb (Pre-Docked)) 100 mls @ 200 mls/hr IVPB DAILY KAVIN Piperacillin Sod/Tazobactam Sod (Zosyn 4.5gm Ivpb (Pre-Docked)) 100 mls @ 200 mls/hr IVPB Q8H-IV KAVIN PRN Reason: Protocol Last Admin: 09/11/16 02:49 Dose: 200 mls/hr Mupirocin (Bactroban Ointment (For Decolonization) -) 1 applic NS BID [facility] Stop: 09/15/16 21:59 Last Admin: 09/10/16 21:56 Dose: 1 applic Ondansetron HCl (Zofran Injection) 4 mg IVPB Q6H PRN PRN Reason: NAUSEA Promethazine HCl (Phenergan Injection -) 12.5 mg IVPB Q6H PRN PRN Reason: NAUSEA AND/OR VOMITING Trimethobenzamide HCl (Tigan Injection -) 200 mg IM Q8H PRN PRN Reason: NAUSEA - Objective Vital Signs: Vital Signs Temperature 97.4 F L 09/11/16 06:00 Pulse Rate 74 09/11/16 06:00 Respiratory Rate 18 09/11/16 06:00 Blood Pressure 108/79 09/11/16 06:00 O2 Sat by Pulse Oximetry (%) 98 09/10/16 21:00 HENT: Yes: Other (NGT) Cardiovascular: Yes: S1, S2 Respiratory: Yes: WNL, Regular, CTA Bilaterally Gastrointestinal: Yes: Soft Edema: No Labs: CBC, BMP 09/11/16 05:30 09/11/16 05:30 INR, PTT INR 1.36 (0.82-1.09) H 09/10/16 05:05 Problem List - Problems (1) Sepsis Code(s): A41.9 - SEPSIS, UNSPECIFIED ORGANISM Qualifiers: Sepsis type: sepsis due to unspecified organism Qualified Code(s): A41.9 - Sepsis, unspecified organism (2) Admission for adjustment of gastric lap band Code(s): Z46.51 - ENCOUNTER FOR FITTING AND ADJUSTMENT OF GASTRIC LAP BAND Assessment/Plan Microbiology 09/09/16 19:00 Blood - Peripheral Venous Blood Culture - Preliminary NO GROWTH OBTAINED AFTER 24 HOURS, INCUBATION TO CONTINUE FOR 4 DAYS. 09/09/16 19:00 Blood - Peripheral Venous Blood Culture - Preliminary NO GROWTH OBTAINED AFTER 24 HOURS, INCUBATION TO CONTINUE FOR 4 DAYS. Laboratory Tests 09/10/16 09/10/16 09/11/16 03:40 05:05 05:30 WBC 13.6 H Hgb 10.0 L Hct 30.0 L Plt Count 261 ESR 110 H BUN Creatinine Ur Leukocyte Esterase Trace H Urine RBC 6 Urine WBC 9 09/11/16 05:30 WBC Hgb Hct Plt Count ESR BUN 14 Creatinine 0.7 Ur Leukocyte Esterase Urine RBC Urine WBC Assessment Day 1 post op band removal Plan Called Dr Ware regarding operative findings Currently stable post op ESR and CRP extremely high and will need to be followed Wilber CABRERA
[2016-09-11 08:54] LABS: METAMYELOCYTE 2 % (0-2); PLATELET ESTIMATE ADEQUATE (NORMAL)
[2016-09-11] MEDS: SODIUM CHLORIDE 1,000 ML IV SCH ×2 (09:59→19:00)
[2016-09-11] MEDS ORDERED: PANTOPRAZOLE SODIUM 100 ML IVPB SCH (10:00)
--- NOTE | 2016-09-11 10:05 | PN ---
Progress Note, Physician Chief Complaint: AWAKE ALERT FEELING BETTER POD #1 EXPLORATORY LAP - Current Medication List Current Medications: Active Medications Dexamethasone Sodium Phosphate (Decadron Injection -) 4 mg IVPUSH ONCE PRN PRN Reason: NAUSEA AND/OR VOMITING Diphenhydramine HCl (Benadryl Injection -) 12.5 mg IVPUSH ONCE PRN PRN Reason: FOR ITCHING Last Admin: 09/11/16 07:28 Dose: 12.5 mg Fentanyl (Sublimaze Injection -) 50 mcg IVPUSH [id number] PRN PRN Reason: PAIN Stop: 09/13/16 14:19 Hydromorphone HCl (Dilaudid Customer Account Specialist -) 10 mg CONTACT REPRESENTATIVE CONTACT REPRESENTATIVE KAVIN PRN Reason: Protocol Stop: 09/17/16 18:33 Last Admin: 09/10/16 19:00 Dose: 10 mg Famotidine/Sodium Chloride (Pepcid 20 Mg Premixed Ivpb -) 50 mls @ 100 mls/hr IVPB BID [facility] Last Admin: 09/10/16 21:56 Dose: 100 mls/hr Sodium Chloride (Normal Saline -) 1,000 mls @ 150 mls/hr IV ASDIR [facility] Last Admin: 09/11/16 09:59 Dose: 150 mls/hr Pantoprazole Sodium (Protonix 40mg Ivpb (Pre-Docked)) 100 mls @ 200 mls/hr IVPB DAILY KAVIN Piperacillin Sod/Tazobactam Sod (Zosyn 4.5gm Ivpb (Pre-Docked)) 100 mls @ 200 mls/hr IVPB Q8H-IV KAVIN PRN Reason: Protocol Last Admin: 09/11/16 09:59 Dose: 200 mls/hr Mupirocin (Bactroban Ointment (For Decolonization) -) 1 applic NS BID [facility] Stop: 09/15/16 21:59 Last Admin: 09/10/16 21:56 Dose: 1 applic Ondansetron HCl (Zofran Injection) 4 mg IVPB Q6H PRN PRN Reason: NAUSEA Promethazine HCl (Phenergan Injection -) 12.5 mg IVPB Q6H PRN PRN Reason: NAUSEA AND/OR VOMITING Trimethobenzamide HCl (Tigan Injection -) 200 mg IM Q8H PRN PRN Reason: NAUSEA - Objective Vital Signs: Vital Signs Temperature 99.4 F 09/11/16 08:22 Pulse Rate 80 09/11/16 08:22 Respiratory Rate 20 09/11/16 08:22 Blood Pressure 120/93 09/11/16 08:22 O2 Sat by Pulse Oximetry (%) 98 09/10/16 21:00 Constitutional: Yes: No Distress Eyes: Yes: WNL HENT: Yes: WNL Neck: Yes: WNL Cardiovascular: Yes: WNL Respiratory: Yes: WNL Gastrointestinal: Yes: Tenderness Genitourinary: Yes: Other Musculoskeletal: Yes: Muscle Weakness Extremities: Yes: WNL Edema: No Peripheral Pulses WNL: Yes Integumentary: Yes: WNL Wound/Incision: Yes: Clean/Dry Neurological: Yes: WNL ...Motor Strength: WNL Psychiatric: Yes: WNL Labs: CBC, BMP 09/11/16 05:30 09/11/16 05:30 INR, PTT INR 1.36 (0.82-1.09) H 09/10/16 05:05 Problem List - Problems (1) Admission for adjustment of gastric lap band Code(s): Z46.51 - ENCOUNTER FOR FITTING AND ADJUSTMENT OF GASTRIC LAP BAND (2) Sepsis Code(s): A41.9 - SEPSIS, UNSPECIFIED ORGANISM Qualifiers: Sepsis type: sepsis due to unspecified organism Qualified Code(s): A41.9 - Sepsis, unspecified organism (3) Hx of cervical cancer Assessment/Plan: MESH PLACED YEARS AGO, POSSIBLE INFECTION Code(s): Z85.41 - PERSONAL HISTORY OF MALIGNANT NEOPLASM OF CERVIX UTERI Assessment/Plan POD EXPLORATORY LAP/LAPBAND REMOVAL PUS AND PURELENT DISCHARGE PER SURGERY SEEN DURING SURGERY EGD NORMAL PELVIC INFECTION SOURSE CERVICAL MESH? KNOCKDOWN MAN CONSULT IV ABX PER ID ESR ELEVATED
[2016-09-11] MEDS: MUPIROCIN 2% TOPICAL OINTMENT FOR DECOLONIZATION NS SCH (10:55)
[2016-09-11] MEDS: FAMOTIDINE 20 MG/50 ML IVPB 50 ML IVPB SCH ×2 (10:56→21:22)
[2016-09-11] MEDS ORDERED: OXYCODONE/APAP 5/325MG COMBO TABLET PO PRN (11:07)
[2016-09-11] MEDS ORDERED: SODIUM CHLORIDE 1,000 ML IV SCH (11:15)
[2016-09-11] MEDS ORDERED: oxyCODONE HCL 5 MG TABLET PO PRN ×2 (11:22→18:54)
[2016-09-11] MEDS ORDERED: ACETAMINOPHEN 325 MG TABLET (FP) PO PRN (11:23)
[2016-09-11] MEDS: HYDROmorphone HCL CARPU-JECT 1 MG/1 ML DISP.SYRIN IVPB PRN ×3 (12:27→22:45)
--- NOTE | 2016-09-11 12:30 | PN ---
Progress Note (short form) - Note Progress Note: POD 1 Laparoscopic removal of gastric band and components, lysis of adhesions, upper endoscopy Pus noted in pelvis intraop Pain controlled No nausea Vital Signs Period Temp Pulse Resp BP Sys/Peng Pulse Ox Last 24 Hr 97.2 F-99.4 F 67-86 10-20 90-120/49-93 95-100 Abd soft, ADELINA x 2 serosanguinous CBC, BMP 09/11/16 05:30 09/11/16 05:30 UGI- no leak/obstruction D/C fox D/C NG tube Clears OOB Transfer to med/surg floor Antibiotics per ID Track Moving Machine Operator consult for possible infection of pelvic mesh previously placed during pelvic reconstruction for cervical CA
--- NOTE | 2016-09-11 12:31 | PN ---
Teaching Attending Note Name of Resident: Cornelio Bowman ATTENDING PHYSICIAN STATEMENT I saw and evaluated the patient. I reviewed the resident's note and discussed the case with the resident. I agree with the resident's findings and plan as documented. SUBJECTIVE: Pt seen and examined in the ICU. Abdominal pain slightly worse today. Feels more like cramps. Seen by surgery this AM. No fevers or chills. No nausea or vomiting. NGT remains in place. (+) flatus but no BM. No CP or SOB. Intake & Output 09/08/16 09/09/16 09/10/16 09/11/16 23:59 23:59 23:59 23:59 Intake Total 1200 3116 1000 Output Total 1785 385 Balance 1200 1331 615 Weight 115 lb 132 lb 4 oz Last Vital Signs Temp Pulse Resp BP Pulse Ox 99.4 F 80 20 120/93 98 09/11/16 08:22 09/11/16 08:22 09/11/16 08:22 09/11/16 08:22 09/10/16 21:00 Active Medications Acetaminophen (Tylenol -) 650 mg PO Q4H PRN PRN Reason: PAIN LEVEL 6-10 Dexamethasone Sodium Phosphate (Decadron Injection -) 4 mg IVPUSH ONCE PRN PRN Reason: NAUSEA AND/OR VOMITING Diphenhydramine HCl (Benadryl Injection -) 12.5 mg IVPUSH ONCE PRN PRN Reason: FOR ITCHING Last Admin: 09/11/16 07:28 Dose: 12.5 mg Fentanyl (Sublimaze Injection -) 50 mcg IVPUSH [id number] PRN PRN Reason: PAIN Stop: 09/13/16 14:19 Hydromorphone HCl (Dilaudid Injection -) 1 mg IVPB Q4H PRN PRN Reason: PAIN Last Admin: 09/11/16 12:27 Dose: 1 mg Famotidine/Sodium Chloride (Pepcid 20 Mg Premixed Ivpb -) 50 mls @ 100 mls/hr IVPB BID [facility] Last Admin: 09/11/16 10:56 Dose: 100 mls/hr Pantoprazole Sodium (Protonix 40mg Ivpb (Pre-Docked)) 100 mls @ 200 mls/hr IVPB DAILY [facility] Last Admin: 09/11/16 10:55 Dose: 200 mls/hr Piperacillin Sod/Tazobactam Sod (Zosyn 4.5gm Ivpb (Pre-Docked)) 100 mls @ 200 mls/hr IVPB Q8H-IV KAVIN PRN Reason: Protocol Last Admin: 09/11/16 09:59 Dose: 200 mls/hr Sodium Chloride (Normal Saline -) 1,000 mls @ 100 mls/hr IV ASDIR KAVIN Last Admin: 09/11/16 11:37 Dose: 100 mls/hr Mupirocin (Bactroban Ointment (For Decolonization) -) 1 applic NS BID KAVIN Stop: 09/15/16 21:59 Last Admin: 09/11/16 10:55 Dose: 1 applic Ondansetron HCl (Zofran Injection) 4 mg IVPB Q6H PRN PRN Reason: NAUSEA Oxycodone HCl (Roxicodone -) 10 mg PO Q4H PRN PRN Reason: PAIN LEVEL 6-10 Promethazine HCl (Phenergan Injection -) 12.5 mg IVPB Q6H PRN PRN Reason: NAUSEA AND/OR VOMITING Trimethobenzamide HCl (Tigan Injection -) 200 mg IM Q8H PRN PRN Reason: NAUSEA Gen: NAD at rest Heart: RRR Lung: decreased breath sounds at the bases Abd: diffusely tender, no rebound Ext: no edema Laboratory Results - last 24 hr 09/09/16 09/10/16 09/10/16 19:00 19:00 19:00 WBC 14.4 H RBC 3.39 L Hgb 10.0 L Hct 29.6 L MCV 87.4 MCHC 33.8 RDW 14.4 Plt Count 250 MPV 8.1 Neutrophils % 86.0 H Lymphocytes % 2.0 L Monocytes % 6.0 Band Neutrophils 6.0 Metamyelocytes Myelocytes Differential Comment Manual diff done Platelet Estimate Adequate Morphology Comment Slide scanned Sodium 140 Potassium 4.0 Chloride 109 H Carbon Dioxide 20 L Anion Gap 11 BUN 15 Creatinine 0.7 Random Glucose 146 H D Calcium 7.1 L Phosphorus Magnesium Blood Type A POSITIVE Antibody Screen Positive H Antibody Identification Anti-k Crossmatch IS Only See Detail Spec Expiration Date 09/11/16 09/11/16 05:30 05:30 WBC 13.6 H RBC 3.38 L Hgb 10.0 L Hct 30.0 L MCV 88.8 MCHC 33.3 RDW 14.6 Plt Count 261 MPV 8.1 Neutrophils % 84.0 H Lymphocytes % 9.0 D Monocytes % 3.0 L Band Neutrophils Metamyelocytes 2 Myelocytes 2 Differential Comment Manual diff done Platelet Estimate Adequate Morphology Comment Sodium 141 Potassium 4.2 Chloride 110 H Carbon Dioxide 21 Anion Gap 10 BUN 14 Creatinine 0.7 Random Glucose 112 H D Calcium 7.4 L Phosphorus 2.2 L Magnesium 2.4 Blood Type Antibody Screen Antibody Identification Crossmatch IS Only Spec Expiration Date ASSESSMENT AND PLAN: h/o Gastric Lap Band now with suspected erosion/slippage r/o Intra-abdominal Sepsis Lactic Acidosis resolved Acute Kidney Injury improving h/o Cervical Ca - ABX per ID - f/u cultures - IVF - pain control - Follow UGI series - incentive spirometry - NPO until cleared by surgery - DVT prophylaxis Dr Singh CCTime 35"
--- NOTE | 2016-09-11 13:03 | OP ---
DATE OF OPERATION: 09/10/2016 PROCEDURE PERFORMED 1. Removal of gastric band plus subcutaneous port component. 2. Laparoscopic lysis of adhesions. 3. Excision of fibrous capsule around the stomach. 4. Upper endoscopy. 5. Diagnostic laparoscopy. 6. Insertion of abdominal drain. PREOPERATIVE DIAGNOSIS: 1. Epigastric pain. 2. Malfunctioning gastric band; secondary slipped gastric band. 3. Vomiting. 4. Sepsis. POSTOPERATIVE DIAGNOSIS: 1. Epigastric pain. 2. Malfunctioning gastric band; secondary slipped gastric band. 3. Vomiting. 4. Sepsis. 5. Abdominal abscess. 6. Abdominal adhesions. 7. Fibrous capsule around the stomach. 8. Infected gastric band. OPERATING SURGEON: Isaiah Ware MD HOSPICE SPIRITUAL CARE COORDINATOR: Kurtis Dias MD ANESTHESIA: General ESTIMATED BLOOD LOSS: 300 mL DESCRIPTION OF PROCEDURE: Patient was brought into the operating room and placed on the OR table in the supine position. All precautions were taken initially including for padding for the back and the feet, and Venodyne boots were placed on both lower extremities. At that point, the abdomen was prepped and draped in the usual manner. A Veress needle was placed in the left upper quadrant and a pneumoperitoneum established. A no. 5 bladeless trocar was placed under direct laparoscopic guidance into the left upper quadrant through that site. Once the trocar was placed, a laparoscopic camera was placed. The liver was immediately noted to be extremely enlarged, extending lower than the actual left upper quadrant incision. This was followed by a no. 12 bladeless trocar below the left costal margin and a no. 12 bladeless trocar in the right upper quadrant, followed by a no. 5 bladeless trocar in the right upper quadrant more laterally. At this junction, a Kevan liver retractor was placed in the epigastrium to retract the left lobe of the liver. The patient was then placed in a 20-degree reverse Trendelenburg position. Upon exploring the abdomen, there was noted to be a large amount of fibrinous material significant for abscesses. There was purulent fluid found in the right and left paracolic gutters extending down to the pelvis. Attention was now directed to the band. The band tubing was encased in the omentum, but the takeoff of the subcutaneous suture was noted and this band tubing was cut. The band tubing now with the liver retractor lifting the liver up, which was difficult because of the size of the liver. The band tubing was found going into the band on the stomach. The band was noticed to be slipped down with a significant amount of stomach above the band incarcerated. Therefore, the tubing leading to the band had omentum on it, and this was dissected free of omentum with the electrocautery. As the human resource assistant surgeon retracted the band toward the patient's left side, the operating surgeon continued to dissect the scar tissue and the fibrous capsule off of the band, and this continued until the final band in the lesser curvature of the stomach was exposed. At this juncture, the operating surgeon pulled the band to the patient's right side, and the human resource assistant surgeon retracted the capsule of the stomach inferiorly. The electrocautery now was used to open this up until the band was now in full view anteriorly. The band was then opened up and then was cut in two, and both pieces were removed from around the stomach and sent off the field as specimen. Attention was now directed to the fibrous capsule around the stomach. With the operating and human resource assistant surgeon lifting it up, the operating surgeon was then able to place a scissor underneath the fibrous capsule and open the capsule up. This was performed from inferior to superior until the total capsule was exposed and cleaned off the abdominal wall. At this juncture, the stomach above that was incarcerated looked improved and more decompressed. It was still not perfectly normal and there was concern about a stricture. The endoscopy cart was wheeled into the room and an upper endoscopy was performed by the operating surgical team, placed through the stomach. The area was able to be negotiated very easily with the endoscope to the distal stomach all the way to the pylorus. This showed that there were no signs of strictures in the area of the slipped gastric band. Also, it was noted that there were no signs of any injury to the stomach wall and no signs of any air bubbles or air coming out of the stomach wall when it was blown up during the endoscopy. Attention was now directed to the lower abdomen where again, there was purulent material found. There were adhesions between the omentum and the anterior abdominal wall, and these were lysed with a Harmonic scalpel until all of the adhesions in the entire lower abdomen were free. At this point, another port was placed just to the right of the umbilicus, at the level of the umbilicus. It was another no. 12 port to provide for better working in the lower abdomen. Attention was now directed to the right lower quadrant where the patient had had a previous appendectomy. The cecum appeared to be normal. The small bowel also had no signs of any perforation. Attention was now directed to the left side where the descending colon was fine. The sigmoid colon appeared to have scar tissue and could not be easily exposed. There were no obvious signs of stool or pus coming from this area. However, to be safe, two drains were placed. One was placed in the left lower quadrant by the sigmoid colon. Another was placed under the liver and on top of the stomach where the band had been. At this point, under direct vision, all trocars and the liver retractor were removed and the pneumoperitoneum released. The right upper quadrant no. 15 trocar site was extended with a scalpel and dissected with continuous electrocautery until the port on the right anterior rectus muscle was seen. The scar tissue over the port was removed, and the port was then removed from the right anterior rectus muscle and sent off the field as specimen with the rest of the band. At this juncture, all trocar sites received 0.25% Marcaine and were closed with 4-0 Biosyn in a subcuticular fashion except for the port site, which initially was closed with 3-0 Vicryl in the subcutaneous tissue followed by 4-0 Biosyn subcuticular. Dressings were applied. Patient awoke from anesthesia and was transferred out of the operating room to the recovery room in stable condition. The patient was transferred to the recovery room in stable condition. ADDENDUM: It should be noted, the patient had a very large liver which made it difficult to visualize. Also, the liver was so heavy that it dug into the liver retractor, which caused bleeding, which needed long work by the operating team, by the operating surgeon and human resource assistant surgeon, to control. It also led to the patient's receiving one unit of blood transfusion during the operative case. Because of the complexity of the procedure, the length of the procedure was approximately 4 hours, well above the normal time. Sherwin [id number]
--- NOTE | 2016-09-11 13:19 | PN ---
Progress Note (short form) - Note Progress Note: POD#1 T-99.4 P-71-80 (no longer tachycardic)BP- 120/93 Pt OOB to chair this am Still with lower abdominal pain/cramping No N/V on clear liquids and tolerating well UGI- no signs of gastric leak/injury Abdominal drains: 15 cc 20 cc WBC-13.6 ( no change) H/H - / (stable) P- Spoke with pt and Cont antibiotics as per ID Advance PO diet as tolerated Encouraged pt to increase OOB and ambulation Cont Incentive spirometer Cont SCD ( will hold Lovenox/ sub-Q Heparin secondary to blood loss during surgery) Will follow
--- NOTE | 2016-09-11 14:24 | PN ---
Progress Note (short form) - Note Progress Note: ANESTHESIOLOGY POST-OP CHECK 46F s/p laparoscopic removal of gastric band under general anesthesia, POD #1. No acute complaints, mild pruritis, pain 7/10, tolerating PO liquids. Denies N/V , ambulating. Vital Signs Temperature 99.4 F 09/11/16 08:22 Pulse Rate 92 H 09/11/16 13:17 Respiratory Rate 18 09/11/16 13:17 Blood Pressure 120/73 09/11/16 13:17 O2 Sat by Pulse Oximetry (%) 98 09/10/16 21:00 Active Medications Acetaminophen (Tylenol -) 650 mg PO Q4H PRN PRN Reason: PAIN LEVEL 6-10 Dexamethasone Sodium Phosphate (Decadron Injection -) 4 mg IVPUSH ONCE PRN PRN Reason: NAUSEA AND/OR VOMITING Diphenhydramine HCl (Benadryl Injection -) 12.5 mg IVPUSH ONCE PRN PRN Reason: FOR ITCHING Last Admin: 09/11/16 07:28 Dose: 12.5 mg Diphenhydramine HCl (Benadryl Injection -) 25 mg IVPUSH Q6H PRN Last Admin: 09/11/16 13:14 Dose: 25 mg Fentanyl (Sublimaze Injection -) 50 mcg IVPUSH [id number] PRN PRN Reason: PAIN Stop: 09/13/16 14:19 Hydromorphone HCl (Dilaudid Injection -) 1 mg IVPB Q4H PRN PRN Reason: PAIN Last Admin: 09/11/16 12:27 Dose: 1 mg Famotidine/Sodium Chloride (Pepcid 20 Mg Premixed Ivpb -) 50 mls @ 100 mls/hr IVPB BID [facility] Last Admin: 09/11/16 10:56 Dose: 100 mls/hr Pantoprazole Sodium (Protonix 40mg Ivpb (Pre-Docked)) 100 mls @ 200 mls/hr IVPB DAILY [facility] Last Admin: 09/11/16 10:55 Dose: 200 mls/hr Piperacillin Sod/Tazobactam Sod (Zosyn 4.5gm Ivpb (Pre-Docked)) 100 mls @ 200 mls/hr IVPB Q8H-IV KAVIN PRN Reason: Protocol Last Admin: 09/11/16 09:59 Dose: 200 mls/hr Sodium Chloride (Normal Saline -) 1,000 mls @ 100 mls/hr IV ASDIR KAVIN Last Admin: 09/11/16 11:37 Dose: 100 mls/hr Mupirocin (Bactroban Ointment (For Decolonization) -) 1 applic NS BID [facility] Stop: 09/15/16 21:59 Last Admin: 09/11/16 10:55 Dose: 1 applic Ondansetron HCl (Zofran Injection) 4 mg IVPB Q6H PRN PRN Reason: NAUSEA Oxycodone HCl (Roxicodone -) 10 mg PO Q4H PRN PRN Reason: PAIN LEVEL 6-10 Promethazine HCl (Phenergan Injection -) 12.5 mg IVPB Q6H PRN PRN Reason: NAUSEA AND/OR VOMITING Trimethobenzamide HCl (Tigan Injection -) 200 mg IM Q8H PRN PRN Reason: NAUSEA Gen: awake alert No apparent anesthesia complications, pain controlled, GUEST RELATIONS AGENT D/C'd Continue management as per primary team.
--- NOTE | 2016-09-11 16:55 | PN ---
Physical Exam: SUBJECTIVE: Patient seen and examined patient feels better still have some pain in abdomen no vomiting ng tube in situ, green bile present 250ml denies fever, chills OBJECTIVE: Vital Signs Period Temp Pulse Resp BP Sys/Peng Pulse Ox Last 24 Hr 97.2 F-99.4 F 67-94 10-20 90-127/49-93 95-100 GENERAL: Awake, alert, and fully oriented, in no acute distress. HEAD: Normal with no signs of trauma. EARS, NOSE, THROAT: oropharynx clear without exudates. Dry mucous membranes. NECK: Normal range of motion, LUNGS: Breath sounds equal, clear to auscultation bilaterally. No wheezes, and no crackles. HEART: s1s2 normal, tachycardia, non murmur ABDOMEN: Soft, non distended, mild tenderness , no guarding, no rigidity, dressing in situ MUSCULOSKELETAL: Normal range of motion at all joints. No bony deformities or tenderness. No CVA tenderness. UPPER EXTREMITIES: 2+ pulses, warm, well-perfused. No cyanosis. No clubbing No peripheral edema. LOWER EXTREMITIES: 2+ pulses, warm, well-perfused. No calf tenderness. No peripheral edema. NEUROLOGICAL: Cranial nerves II-XII intact. Normal speech. PSYCHIATRIC: Cooperative. Good eye contact. SKIN: Warm, dry, normal turgor, Laboratory Results - last 24 hr 09/10/16 09/10/16 09/11/16 19:00 19:00 05:30 WBC 14.4 H 13.6 H RBC 3.39 L 3.38 L Hgb 10.0 L 10.0 L Hct 29.6 L 30.0 L MCV 87.4 88.8 MCHC 33.8 33.3 RDW 14.4 14.6 Plt Count 250 261 MPV 8.1 8.1 Neutrophils % 86.0 H 84.0 H Lymphocytes % 2.0 L 9.0 D Monocytes % 6.0 3.0 L Band Neutrophils 6.0 Metamyelocytes 2 Myelocytes 2 Differential Comment Manual diff done Manual diff done Platelet Estimate Adequate Adequate Morphology Comment Slide scanned Sodium 140 Potassium 4.0 Chloride 109 H Carbon Dioxide 20 L Anion Gap 11 BUN 15 Creatinine 0.7 Random Glucose 146 H D Calcium 7.1 L Phosphorus Magnesium 09/11/16 05:30 WBC RBC Hgb Hct MCV MCHC RDW Plt Count MPV Neutrophils % Lymphocytes % Monocytes % Band Neutrophils Metamyelocytes Myelocytes Differential Comment Platelet Estimate Morphology Comment Sodium 141 Potassium 4.2 Chloride 110 H Carbon Dioxide 21 Anion Gap 10 BUN 14 Creatinine 0.7 Random Glucose 112 H D Calcium 7.4 L Phosphorus 2.2 L Magnesium 2.4 Active Medications Generic Name Dose Route Start Last Admin Trade Name Freq PRN Reason Stop Dose Admin Acetaminophen 650 mg 09/11/16 11:23 Tylenol - PO Q4H PRN PAIN LEVEL 6-10 Dexamethasone Sodium Phosphate 4 mg 09/10/16 18:32 Decadron Injection - IVPUSH ONCE PRN NAUSEA AND/OR VOMITING Diphenhydramine HCl 12.5 mg 09/10/16 18:32 09/11/16 07:28 Benadryl Injection - IVPUSH 12.5 mg ONCE PRN Administration FOR ITCHING Diphenhydramine HCl 25 mg 09/11/16 12:50 09/11/16 13:14 Benadryl Injection - IVPUSH 25 mg Q6H PRN Administration Fentanyl 50 mcg 09/10/16 18:51 Sublimaze Injection - IVPUSH 09/13/16 14:19 [id number] PRN PAIN Hydromorphone HCl 1 mg 09/11/16 11:07 09/11/16 12:27 Dilaudid Injection - IVPB 1 mg Q4H PRN Administration PAIN Famotidine/Sodium Chloride 50 mls @ 100 mls/hr 09/10/16 22:00 09/11/16 10:56 Pepcid 20 Mg Premixed Ivpb - IVPB 100 mls/hr BID KAVIN Administration Pantoprazole Sodium 100 mls @ 200 mls/hr 09/11/16 10:00 09/11/16 10:55 Protonix 40mg Ivpb (Pre-Docked) IVPB 200 mls/hr DAILY KAVIN Administration Piperacillin Sod/Tazobactam Sod 100 mls @ 200 mls/hr 09/11/16 02:00 09/11/16 09 :59 Zosyn 4.5gm Ivpb (Pre-Docked) IVPB 200 mls/hr Q8H-IV KAVIN Administration Protocol Sodium Chloride 1,000 mls @ 100 mls/hr 09/11/16 11:15 09/11/16 11:37 Normal Saline - IV 100 mls/hr ASDIR KAVIN Administration Mupirocin 1 applic 09/10/16 22:00 09/11/16 10:55 Bactroban Ointment (For Decolonization) - NS 09/15/16 21:59 1 applic BID KAVIN Administration Ondansetron HCl 4 mg 09/10/16 18:51 Zofran Injection IVPB Q6H PRN NAUSEA Oxycodone HCl 10 mg 09/11/16 11:22 Roxicodone - PO Q4H PRN PAIN LEVEL 6-10 Promethazine HCl 12.5 mg 09/10/16 18:32 Phenergan Injection - IVPB Q6H PRN NAUSEA AND/OR VOMITING Trimethobenzamide HCl 200 mg 09/10/16 18:02 Tigan Injection - IM Q8H PRN NAUSEA ASSESSMENT/PLAN: sepsis from gastric band slippage, p/o day 1, Iv fluid 100ml/hr ns Iv antibiotics zosyn as per ID monitor vitals monitor intake/ output keep map > 65 follow blood culture, urine culture pain control meds as per surgery zofran for nausea and vomiting lactic acid improved monitor drain output and NG tube output bunny improved monitor creatnine avoid nephrotoxic drugs fluid : ns 100 ml/hr electrolyte ; follow nutrition ; npo for now dvt pro: scd, ambulatory gi pro ; protonix dispo: transfer to med surg Dispo: We will continue to follow the patient. Thank you for this consultative opportunity. Visit type - Emergency Visit Emergency Visit: Yes ED Registration Date: 09/09/16 Care time: The patient presented to the Emergency Department on the above date and was hospitalized for further evaluation of their emergent condition. - New Patient This patient is new to me today: No - Critical Care Critical Care patient: Yes Total Critical Care Time (in minutes): 45 Critical Care Statement: The care of this patient involved high complexity decision making to prevent further life threatening deterioration of the patient 's condition and/or to evalute & treat vital organ system(s) failure or risk of failure.
[2016-09-11] MEDS ORDERED: PT OWN MED DRAWER 7, Y5N ONE (18:51)
[2016-09-11] MEDS ORDERED: TRIMETHOBENZAMIDE HCL 200MG/2ML INJ IM PRN (18:54)
[2016-09-11] MEDS ORDERED: PROMETHAZINE HCL 25 MG/1 ML VIAL IVPB PRN (18:54)
[2016-09-11] MEDS ORDERED: DEXAMETHASONE SOD PHOSPHATE 4 MG/1 ML VIAL IVPUSH PRN (18:54)
--- NOTE | 2016-09-11 20:31 | CON.GI ---
Consult Consult Specialty:: GASTROENTEROLOGY Reason for Consultation:: ABDOMINAL PAIN AND SEPSIS - History of Present Illness Chief Complaint: ABDOMINAL PAIN History of Present Illness: 46 YEAR OLD FEMALE WITH HISTORY OF OBESITY AND IS S/P GASTRIC BAND THAT HAS SLIPPED OUT OF POSITION AND A RESULT SHE WAS SCHEDULED FOR ELECTIVE REVISION OR REMOVAL OF THE BAND. SHE ALSO HAD A HISTORY OF CERVICAL CANCER AND A TRACHELECTOMY WITH PALCEMENT OF A MESH. DESPITE THIS SHE STILL HAS NOT BEEN ABLE TO GET . SHE DEVELOPED FLU LIKE SYMPTOMS WITH ACHES AND PAINS CHILLS THEN A FEVER WITH LOWER ABDOMINAL PAIN. SHE WAS ADMITTED TO THE HOSPITAL WITH HYPOTENSION ANSD SEPSIS. SHE WAS TAKEN TO THE OR BY DR LAY HER BARIATRIC SURGEON AND THE BAND WAS REMOVED. SEE THE OERATIV NOTE FOR THE FINDINGS. THERE WAS SOME LIVER INJURY WITH BLEEDING DURING THE OPERATION BUT THIS WAS CONTROLLED. THER EWAS A LARGE AMOUNT OF PURLENT FLUID IN THE PELVIS AND AROUND THE COLON AND STOMACH. THE STOMACH LOOKED INCARCERATED FROM THE BAND BUT WHEN THE BAND WAS REMOVED IT SEEMED TO PERFUSE BETTER. EGDAND UGI SEREIS REVELAED NO PERFORATION. SHE FEELS MUCH BETTER NOW. SHE HAS TWO DRAINS ON EIN THE PELVIS AND THE OTHER NEAR THE STOMACH. BOTH ARE DRAINING SEROSANGUINOUS FLUID. SHE IS CURRENTLY AWAITING THE WOOLEN TESTER CONSULTATION. - History Source History Provided By: Patient Limitations to Obtaining History: No Limitations - Past Medical History ACCORDION TUNER: No: Alzheimer's, CVA, Dementia, Migraine, Multiple Sclerosis, Peripheral Neuropathy, Parkinson's, Seizure, Syncope, TIA, Vertigo, Other Cardio/Vascular: No: AFIB, Aneurysm, Aortic Insufficiency, Aortic Stenosis, CAD , CHF, Deep Vein Thrombosis, HTN, Hyperlipdemia, NV, Mitral Insufficiency, Mitral Stenosis, Murmur, Pulmonary Hypertension, Other Pulmonary: No: Asthma, Bronchitis, Cancer, COPD, O2 Dependent, Pneumonia, Previously Intubated, Pulmonary Embolus, Pulmonary Fibrosis, Sleep Apnea, Other Gastrointestinal: Yes: Other (OBESITY) Hepatobiliary: No: Cirrhosis, Cholelithiasis, Cholecystitis, Choledocholithiasis , Hepatitis A, Hepatitis B, Hepatitis C, Other Renal/: No: Renal Failure, Renal Inusuff, BPH, Cancer, Hematuria, Hemodialysis , Neurogenic Bladder, Renal Calculi, UTI, Other Reproductive: Yes: Other (CERVICAL CANCER) ...LMP: 12/13/14 ...: No Heme/Onc: Yes: Other (CERVICAL CANCER) Infectious Disease: No: AIDS, C-Diff, Herpes Zoster, HIV, MRSA, STD's, Tuberculosis, VREF, Other Psych: No: Addictions, Anxiety, Bipolar, Depression, Panic, Psychosis, Schizophrenia, Other Musculoskeletal: No: Bursitis, Chronic low back pain, Hemiparesis, Hemiplegia, Osteoarthritis, Paraplegia, Other Rheumatology: No: Fibromyalgia, Gout, Lupus, Rheumatoid Arthritis, Sarcoidosis, Vasculitis, Other ENT: No: Allergic Rhinitis, Sinusitis, Other Endocrine: No: [place]'s Disease, [place]'s Disease, Diabetes Insipidus, Diabetes Mellitus, Hyperparathyroidism, Hyperthyroidism, Hypothyroidism, Osteopenia, SIADH, Other Dermatology: No: Basal Cell, Cellulitis, Eczema, Melanoma, Psoriasis, Squamous Cell, Other - Past Surgical History Additional Surgical History: ABOVE - Alcohol/Substance Use Hx Alcohol Use: No - Smoking History Smoking history: Former smoker Have you smoked in the past 12 months: No Aproximately how many cigarettes per day: 10 If you are a former smoker, when did you quit?: 5 yrs.ago Home Medications - Allergies Allergies/Adverse Reactions: Allergies Allergy/AdvReac Type Severity Reaction Status Date / Time No Known Allergies Allergy Verified 01/01/15 09:57 - Home Medications Home Medications: Ambulatory Orders Ascorbic Acid [Vitamin C -] 500 mg PO DAILY 01/01/15 Calcium Carbonate/Vitamin D3 [Calcium 600 with Vit D Tab] 1 each PO DAILY Krill/Om-3/Dha/Epa/Phospho/Ast [Krill Oil 500 mg Softgel] 1 each PO DAILY Multivitamins [Tab-A-Vit -] 1 tab PO DAILY 01/01/15 Vitamin E 1,000 unit PO DAILY 01/01/15 Oxycodone HCl/Acetaminophen [Percocet 5-325 mg Tablet] 1 tab PO Q6H PRN #20 tablet MDD 4 01/27/16 Famotidine [Pepcid] 20 mg PO BID #60 tablet 09/10/16 Oxycodone HCl/Acetaminophen [Percocet 5-325 mg Tablet] 1 - 2 tab PO Q6H #28 tab MDD 4 09/10/16 Family Disease History - Family Disease History Family History: Unremarkable Review of Systems - Review of Systems Constitutional: reports: Chills, Fever Eyes: reports: No Symptoms HENT: reports: No Symptoms Neck: reports: No Symptoms Cardiovascular: reports: No Symptoms Respiratory: reports: No Symptoms Gastrointestinal: reports: Abdominal Pain Genitourinary: reports: No Symptoms Breasts: reports: No Symptoms Reported Musculoskeletal: reports: No Symptoms Integumentary: reports: No Symptoms Neurological: reports: No Symptoms Endocrine: reports: No Symptoms Hematology/Lymphatic: reports: No Symptoms Psychiatric: reports: No Symptoms Physical Exam-GI Vital Signs: Vital Signs Temperature 98.2 F 09/11/16 17:29 Pulse Rate 85 09/11/16 17:29 Respiratory Rate 18 09/11/16 17:29 Blood Pressure 121/81 09/11/16 17:29 O2 Sat by Pulse Oximetry (%) 98 09/11/16 10:00 Constitutional: Yes: Obese Eyes: Yes: Conjunctiva Clear HENT: Yes: Normocephalic Cardiovascular: Yes: Regular Rate and Rhythm Respiratory: Yes: Regular Gastrointestinal Inspection: Yes: Distention ...Auscultate: Yes: Hypoactive Bowel Sounds ...Palpate: Yes: Tenderness (DIFFUSE NO GUARDING REBOUND, DRAINS UPPER LOWER ABDOMEN) Musculoskeletal: Yes: WNL Extremities: Yes: WNL Wound/Incision: Yes: Clean/Dry Neurological: Yes: Alert, Oriented Psychiatric: Yes: Alert, Oriented Labs: CBC, BMP 09/11/16 05:30 09/11/16 05:30 INR, PTT INR 1.36 (0.82-1.09) H 09/10/16 05:05 Laboratory Tests 09/09/16 09/10/16 09/10/16 19:20 05:05 05:05 WBC RBC Hgb Hct MCV MCHC RDW Plt Count MPV Neutrophils % Lymphocytes % Monocytes % Metamyelocytes Myelocytes Differential Comment Platelet Estimate ESR 110 H INR Sodium Potassium Chloride Carbon Dioxide Anion Gap BUN Creatinine Random Glucose Calcium Phosphorus Magnesium Total Bilirubin AST ALT Alkaline Phosphatase C-Reactive Protein 40.9 H B-Natriuretic Peptide 1085.05 H Total Protein Albumin 09/10/16 09/10/16 09/11/16 05:05 05:05 05:30 WBC 13.6 H RBC 3.38 L Hgb 10.0 L Hct 30.0 L MCV 88.8 MCHC 33.3 RDW 14.6 Plt Count 261 MPV 8.1 Neutrophils % 84.0 H Lymphocytes % 9.0 D Monocytes % 3.0 L Metamyelocytes 2 Myelocytes 2 Differential Comment Manual diff done Platelet Estimate Adequate ESR INR 1.36 H Sodium 139 Potassium 3.5 Chloride 106 Carbon Dioxide 21 Anion Gap 12 BUN 16 Creatinine 0.8 D Random Glucose 107 H Calcium Phosphorus Magnesium 2.0 D Total Bilirubin 0.6 AST 8 L ALT 8 L D Alkaline Phosphatase 59 C-Reactive Protein B-Natriuretic Peptide Total Protein 4.9 L Albumin 1.9 L 09/11/16 05:30 WBC RBC Hgb Hct MCV MCHC RDW Plt Count MPV Neutrophils % Lymphocytes % Monocytes % Metamyelocytes Myelocytes Differential Comment Platelet Estimate ESR INR Sodium 141 Potassium 4.2 Chloride 110 H Carbon Dioxide 21 Anion Gap 10 BUN 14 Creatinine 0.7 Random Glucose 112 H D Calcium 7.4 L Phosphorus 2.2 L Magnesium 2.4 Total Bilirubin AST ALT Alkaline Phosphatase C-Reactive Protein B-Natriuretic Peptide Total Protein Albumin Imaging - Results Other: Image Reviewed Problem List - Problems (1) Sepsis Assessment/Plan: SOURCE SEEMS TO BE INTRA ABDOMINAL AND /OR PELVIC FOLLOW CULTURES PER ID AND SURGERY NEEDS WOOLEN TESTER CONSULT IE: MESH REMOVAL ??? POST CARE NOW IS SURGICAL/WOOLEN TESTER CALL IF NEEDED. ICU TIME : 30 MINUTES Code(s): A41.9 - SEPSIS, UNSPECIFIED ORGANISM Qualifiers: Sepsis type: sepsis due to unspecified organism Qualified Code(s): A41.9 - Sepsis, unspecified organism (2) Peritonitis of undetermined cause Code(s): K65.9 - PERITONITIS, UNSPECIFIED (3) Intra-abdominal abscess Code(s): K65.1 - PERITONEAL ABSCESS (4) Gastric band slippage Code(s): K95.09 - OTHER COMPLICATIONS OF GASTRIC BAND PROCEDURE (5) Hx of cervical cancer Code(s): Z85.41 - PERSONAL HISTORY OF MALIGNANT NEOPLASM OF CERVIX UTERI
[2016-09-11] MEDS ORDERED: MUPIROCIN 2% TOPICAL OINTMENT FOR DECOLONIZATION NS SCH (22:00)
[2016-09-11] MEDS: traZODone HCL 50 MG TABLET (FP) PO PRN (22:51)
[2016-09-12] MEDS: PIPERACILLIN/TAZOB 4.5 GM 100 ML IVPB SCH ×4 (02:25→18:39)
[2016-09-12] MEDS: HYDROmorphone HCL CARPU-JECT 1 MG/1 ML DISP.SYRIN IVPB PRN ×2 (07:41→18:04)
[2016-09-12 08:13] LABS: MCH 29.9 pg (25.7-33.7); MCHC 34.2 g/dl (32.0-36.0); MEAN CELL VOLUME 87.5 fl (80-96); MEAN PLT VOLUME 7.8 fl (7.5-11.1); PLATELET COUNT 213 K/MM3 (134-434); RDW 14.5 % (11.6-15.6); WHITE BLOOD COUNT 10.8 K/mm3 (4.0-10.0)
[2016-09-12 08:44] LABS: CALCIUM 7.2 mg/dL (8.5-10.1); COCKROFT - GAULT 110.942; CREATININE 0.6 mg/dL (0.55-1.02)
--- NOTE | 2016-09-12 08:50 | PN ---
Progress Note, Physician Chief Complaint: ID Feeling better GI noted seen - Current Medication List Current Medications: Active Medications Acetaminophen (Tylenol -) 650 mg PO Q4H PRN PRN Reason: PAIN LEVEL 6-10 Dexamethasone Sodium Phosphate (Decadron Injection -) 4 mg IVPUSH ONCE PRN PRN Reason: NAUSEA AND/OR VOMITING Diphenhydramine HCl (Benadryl Injection -) 12.5 mg IVPUSH ONCE PRN PRN Reason: FOR ITCHING Diphenhydramine HCl (Benadryl Injection -) 25 mg IVPUSH Q6H PRN Hydromorphone HCl (Dilaudid Injection -) 1 mg IVPB Q4H PRN PRN Reason: PAIN Last Admin: 09/12/16 07:41 Dose: 1 mg Pantoprazole Sodium (Protonix 40mg Ivpb (Pre-Docked)) 100 mls @ 200 mls/hr IVPB DAILY [facility] Famotidine/Sodium Chloride (Pepcid 20 Mg Premixed Ivpb -) 50 mls @ 100 mls/hr IVPB BID [facility] Last Admin: 09/11/16 21:22 Dose: 100 mls/hr Sodium Chloride (Normal Saline -) 1,000 mls @ 100 mls/hr IV ASDIR [facility] Last Admin: 09/11/16 19:00 Dose: 100 mls/hr Piperacillin Sod/Tazobactam Sod (Zosyn 4.5gm Ivpb (Pre-Docked)) 100 mls @ 200 mls/hr IVPB Q8H-IV [facility] PRN Reason: Protocol Last Admin: 09/12/16 02:25 Dose: 200 mls/hr Ondansetron HCl (Zofran Injection) 4 mg IVPB Q6H PRN PRN Reason: NAUSEA Oxycodone HCl (Roxicodone -) 10 mg PO Q4H PRN PRN Reason: PAIN LEVEL 6-10 Promethazine HCl (Phenergan Injection -) 12.5 mg IVPB Q6H PRN PRN Reason: NAUSEA AND/OR VOMITING Trazodone HCl (Desyrel -) 50 mg PO HS PRN PRN Reason: INSOMNIA Last Admin: 09/11/16 22:51 Dose: 50 mg Trimethobenzamide HCl (Tigan Injection -) 200 mg IM Q8H PRN PRN Reason: NAUSEA - Objective Vital Signs: Vital Signs Temperature 98.7 F 09/12/16 06:00 Pulse Rate 81 09/12/16 06:00 Respiratory Rate 18 09/12/16 06:00 Blood Pressure 120/75 09/12/16 06:00 O2 Sat by Pulse Oximetry (%) 98 09/11/16 21:00 Constitutional: Yes: Well Nourished, No Distress HENT: Yes: WNL, Atraumatic Neck: Yes: WNL, Supple Cardiovascular: Yes: Regular Rate and Rhythm, S1, S2 Respiratory: Yes: WNL, Regular, CTA Bilaterally Gastrointestinal: Yes: WNL, Normal Bowel Sounds, Soft, Tenderness, Other (Drain) Extremities: No: Calf Tenderness, Cold, Cool, Cyanosis Edema: No Labs: CBC, BMP 09/12/16 06:20 INR, PTT INR 1.36 (0.82-1.09) H 09/10/16 05:05 Problem List - Problems (1) Sepsis Code(s): A41.9 - SEPSIS, UNSPECIFIED ORGANISM Qualifiers: Sepsis type: sepsis due to unspecified organism Qualified Code(s): A41.9 - Sepsis, unspecified organism (2) Admission for adjustment of gastric lap band Code(s): Z46.51 - ENCOUNTER FOR FITTING AND ADJUSTMENT OF GASTRIC LAP BAND Assessment/Plan Laboratory Tests 09/12/16 09/12/16 06:20 06:20 WBC 10.8 H Hgb 8.7 L D Hct 25.3 L D Plt Count 213 BUN 11 D Creatinine 0.6 Assessment Removal of gastric band Pus in pelvis found etiology unclear Plan Continue antibiotic Surgical followup ART GLASS SETTER evaluation Obtain copy of original op report regarding surgery and mesh Follow up ESR and CRP wednesday IV therapy only for a while Wilber CABRERA
[2016-09-12] MEDS ORDERED: POTASSIUM CHLORIDE TABS 20 MEQ TABLET.ER (FP) PO ONE (09:30)
[2016-09-12] MEDS ORDERED: PANTOPRAZOLE SODIUM 100 ML IVPB SCH (10:00)
[2016-09-12] MEDS: MULTIVITAMINS (DAILY MVI) TABLET (FP) PO SCH (10:35)
[2016-09-12] MEDS: FAMOTIDINE 20 MG/50 ML IVPB 50 ML IVPB SCH ×2 (10:35→21:02)
--- NOTE | 2016-09-12 10:50 | PN ---
Progress Note, Physician Chief Complaint: want increased pain rx c/o lbm - Current Medication List Current Medications: Active Medications Acetaminophen (Tylenol -) 650 mg PO Q4H PRN PRN Reason: PAIN LEVEL 6-10 Amino Acids (Prosource No Carb Liquid Pkt) 30 ml PO BID@0800,1730 [facility] Dexamethasone Sodium Phosphate (Decadron Injection -) 4 mg IVPUSH ONCE PRN PRN Reason: NAUSEA AND/OR VOMITING Diphenhydramine HCl (Benadryl Injection -) 12.5 mg IVPUSH ONCE PRN PRN Reason: FOR ITCHING Diphenhydramine HCl (Benadryl Injection -) 25 mg IVPUSH Q6H PRN Hydromorphone HCl (Dilaudid Injection -) 1 mg IVPB Q4H PRN PRN Reason: PAIN Last Admin: 09/12/16 07:41 Dose: 1 mg Pantoprazole Sodium (Protonix 40mg Ivpb (Pre-Docked)) 100 mls @ 200 mls/hr IVPB DAILY [facility] Famotidine/Sodium Chloride (Pepcid 20 Mg Premixed Ivpb -) 50 mls @ 100 mls/hr IVPB BID [facility] Last Admin: 09/12/16 10:35 Dose: 100 mls/hr Sodium Chloride (Normal Saline -) 1,000 mls @ 100 mls/hr IV ASDIR [facility] Last Admin: 09/11/16 19:00 Dose: 100 mls/hr Piperacillin Sod/Tazobactam Sod (Zosyn 4.5gm Ivpb (Pre-Docked)) 100 mls @ 200 mls/hr IVPB Q8H-IV [facility] PRN Reason: Protocol Last Admin: 09/12/16 02:25 Dose: 200 mls/hr Multivitamins/Minerals/Vitamin C (Tab-A-Vit -) 1 tab PO DAILY [facility] Last Admin: 09/12/16 10:35 Dose: 1 tab Ondansetron HCl (Zofran Injection) 4 mg IVPB Q6H PRN PRN Reason: NAUSEA Oxycodone HCl (Roxicodone -) 10 mg PO Q4H PRN PRN Reason: PAIN LEVEL 6-10 Promethazine HCl (Phenergan Injection -) 12.5 mg IVPB Q6H PRN PRN Reason: NAUSEA AND/OR VOMITING Trazodone HCl (Desyrel -) 50 mg PO HS PRN PRN Reason: INSOMNIA Last Admin: 09/11/16 22:51 Dose: 50 mg Trimethobenzamide HCl (Tigan Injection -) 200 mg IM Q8H PRN PRN Reason: NAUSEA - Objective Vital Signs: Vital Signs Temperature 98.7 F 09/12/16 06:00 Pulse Rate 81 09/12/16 06:00 Respiratory Rate 18 09/12/16 06:00 Blood Pressure 120/75 09/12/16 06:00 O2 Sat by Pulse Oximetry (%) 98 09/11/16 21:00 Neck: Yes: WNL Cardiovascular: Yes: WNL Respiratory: Yes: WNL Gastrointestinal: Yes: Tenderness Edema: No Wound/Incision: Yes: Other (johnny draining). No: Dressing Dry and Intact Labs: CBC, BMP 09/12/16 06:20 09/12/16 06:20 INR, PTT INR 1.36 (0.82-1.09) H 09/10/16 05:05 Problem List - Problems (1) Admission for adjustment of gastric lap band Code(s): Z46.51 - ENCOUNTER FOR FITTING AND ADJUSTMENT OF GASTRIC LAP BAND (2) Hx of cervical cancer Code(s): Z85.41 - PERSONAL HISTORY OF MALIGNANT NEOPLASM OF CERVIX UTERI (3) Sepsis Code(s): A41.9 - SEPSIS, UNSPECIFIED ORGANISM Qualifiers: Sepsis type: sepsis due to unspecified organism Qualified Code(s): A41.9 - Sepsis, unspecified organism Assessment/Plan (1) Admission for adjustment of gastric lap band Code(s): Z46.51 - ENCOUNTER FOR FITTING AND ADJUSTMENT OF GASTRIC LAP BAND (2) Sepsis Code(s): A41.9 - SEPSIS, UNSPECIFIED ORGANISM Qualifiers: Sepsis type: sepsis due to unspecified organism Qualified Code(s): A41.9 - Sepsis, unspecified organism (3) Hx of cervical cancer Assessment/Plan: MESH PLACED YEARS AGO, POSSIBLE INFECTION Code(s): Z85.41 - PERSONAL HISTORY OF MALIGNANT NEOPLASM OF CERVIX UTERI Assessment/Plan POD EXPLORATORY LAP/LAPBAND REMOVAL PUS AND PURELENT DISCHARGE PER SURGERY SEEN DURING SURGERY EGD NORMAL PELVIC INFECTION SOURSE CERVICAL MESH? COOK SHORT ORDER CONSULTED IV ABX PER ID ESR ELEVATED CLAM DREDGE BOAT CAPTAIN FM
[2016-09-12] MEDS ORDERED: POLYETHYLENE GLYCOL 3350 119 GM BTL PO SCH (11:45)
--- NOTE | 2016-09-12 11:47 | PN ---
Progress Note (short form) - Note Progress Note: No acute events Tolerating clears Pain controlled Vital Signs Period Temp Pulse Resp BP Sys/Peng Pulse Ox Last 24 Hr 97.8 F-98.7 F 81-94 18-20 119-127/69-84 98 Abd soft, ADELINA x 2 serosanguinous CBC, BMP 09/12/16 06:20 09/12/16 06:20 Clears Antibiotics Foot Press Operator evaluation for pelvic mesh OOB
[2016-09-12 11:59] LABS: METAMYELOCYTE 1 % (0-2)
[2016-09-12 12:00] LABS: PLATELET ESTIMATE ADEQUATE (NORMAL)
[2016-09-12] MEDS: ONDANSETRON 4 MG/2 ML VIAL IVPB PRN (16:57)
--- NOTE | 2016-09-12 17:37 | CONSULT ---
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 Currently VSS, Afibrile Abd soft, +BS Pelvic exam declined, stating it is difficult and uncomfortable due to prior surgery WBC improving - [address] scan from 09/08/16 brought for review, requested read from Dr. Sal No TELEGRAPHIC TYPEWRITER MECHANIC pathology noted, old surgical clips in the pelvis, c/w prior surgery, likely Lymph node dissection, no evidence of pelvic abscess Will follow official read It is recommended she obtains Op reports from 2004 and 2005.
[2016-09-12] MEDS: AMINO ACIDS/PROTEIN HYDROLYS 30 ML LIQUID.PKT PO SCH (18:01)
[2016-09-12] MEDS: SODIUM CHLORIDE 1,000 ML IV SCH (21:02)
[2016-09-13] MEDS: HYDROmorphone HCL CARPU-JECT 1 MG/1 ML DISP.SYRIN IVPB PRN ×3 (00:50→20:03)
[2016-09-13] MEDS: ACETAMINOPHEN 325 MG TABLET (FP) PO PRN ×2 (01:11→12:20)
[2016-09-13] MEDS: PIPERACILLIN/TAZOB 4.5 GM 100 ML IVPB SCH ×3 (01:32→17:47)
[2016-09-13 08:18] LABS: MCH 29.3 pg (25.7-33.7); MEAN CELL VOLUME 86.1 fl (80-96); MEAN PLT VOLUME 7.5 fl (7.5-11.1); PLATELET COUNT 271 K/MM3 (134-434); RDW 14.6 % (11.6-15.6); WHITE BLOOD COUNT 16.1 K/mm3 (4.0-10.0)
[2016-09-13 09:10] LABS: ALBUMIN 1.6 g/dl (3.4-5.0); ALK PHOS 68 U/L (45-117); ANION GAP 9 (8-16); BILIRUBIN,TOTAL 0.4 mg/dL (0.2-1.0); CALCIUM 7.1 mg/dL (8.5-10.1); CO2 25 mmol/L (21-32); COCKROFT - GAULT 133.1355; CREATININE 0.5 mg/dL (0.55-1.02); GLUCOSE,RANDOM 72 mg/dL (74-106); SGOT/AST 21 U/L (15-37); SGPT/ALT 34 U/L (12-78); TOT PROT 4.3 g/dl (6.4-8.2)
--- NOTE | 2016-09-13 09:15 | PN ---
Progress Note, Physician Chief Complaint: C/O LBM C/O ABD SORENESS REQUESTING TO ADVANCE DIET - Current Medication List Current Medications: Active Medications Acetaminophen (Tylenol -) 650 mg PO Q4H PRN PRN Reason: PAIN LEVEL 6-10 Last Admin: 09/13/16 01:11 Dose: 650 mg Amino Acids (Prosource No Carb Liquid Pkt) 30 ml PO BID@0800,1730 [facility] Last Admin: 09/12/16 18:01 Dose: 30 ml Dexamethasone Sodium Phosphate (Decadron Injection -) 4 mg IVPUSH ONCE PRN PRN Reason: NAUSEA AND/OR VOMITING Diphenhydramine HCl (Benadryl Injection -) 12.5 mg IVPUSH ONCE PRN PRN Reason: FOR ITCHING Diphenhydramine HCl (Benadryl Injection -) 25 mg IVPUSH Q6H PRN Hydromorphone HCl (Dilaudid Injection -) 1 mg IVPB Q3H PRN PRN Reason: PAIN Last Admin: 09/13/16 00:50 Dose: 1 mg Famotidine/Sodium Chloride (Pepcid 20 Mg Premixed Ivpb -) 50 mls @ 100 mls/hr IVPB BID [facility] Last Admin: 09/12/16 21:02 Dose: 100 mls/hr Sodium Chloride (Normal Saline -) 1,000 mls @ 100 mls/hr IV ASDIR [facility] Last Admin: 09/12/16 21:02 Dose: 100 mls/hr Piperacillin Sod/Tazobactam Sod (Zosyn 4.5gm Ivpb (Pre-Docked)) 100 mls @ 200 mls/hr IVPB Q8H-IV [facility] PRN Reason: Protocol Last Admin: 09/13/16 01:32 Dose: 200 mls/hr Multivitamins/Minerals/Vitamin C (Tab-A-Vit -) 1 tab PO DAILY [facility] Last Admin: 09/12/16 10:35 Dose: 1 tab Ondansetron HCl (Zofran Injection) 4 mg IVPB Q6H PRN PRN Reason: NAUSEA Last Admin: 09/12/16 16:57 Dose: 4 mg Oxycodone HCl (Roxicodone -) 10 mg PO Q4H PRN PRN Reason: PAIN LEVEL 6-10 Promethazine HCl (Phenergan Injection -) 12.5 mg IVPB Q6H PRN PRN Reason: NAUSEA AND/OR VOMITING Trazodone HCl (Desyrel -) 50 mg PO HS PRN PRN Reason: INSOMNIA Last Admin: 09/11/16 22:51 Dose: 50 mg Trimethobenzamide HCl (Tigan Injection -) 200 mg IM Q8H PRN PRN Reason: NAUSEA - Objective Vital Signs: Vital Signs Temperature 98.8 F 09/13/16 06:53 Pulse Rate 80 09/13/16 06:53 Respiratory Rate 20 09/13/16 06:53 Blood Pressure 118/60 09/13/16 06:53 O2 Sat by Pulse Oximetry (%) 95 09/12/16 21:00 Constitutional: Yes: Calm Neck: Yes: WNL Cardiovascular: Yes: WNL Respiratory: Yes: WNL Gastrointestinal: Yes: Tenderness Edema: No Labs: CBC, BMP 09/13/16 06:30 INR, PTT INR 1.36 (0.82-1.09) H 09/10/16 05:05 Problem List - Problems (1) Admission for adjustment of gastric lap band Code(s): Z46.51 - ENCOUNTER FOR FITTING AND ADJUSTMENT OF GASTRIC LAP BAND (2) Hx of cervical cancer Code(s): Z85.41 - PERSONAL HISTORY OF MALIGNANT NEOPLASM OF CERVIX UTERI (3) Sepsis Code(s): A41.9 - SEPSIS, UNSPECIFIED ORGANISM Qualifiers: Sepsis type: sepsis due to unspecified organism Qualified Code(s): A41.9 - Sepsis, unspecified organism Assessment/Plan (1) Admission for adjustment of gastric lap band Code(s): Z46.51 - ENCOUNTER FOR FITTING AND ADJUSTMENT OF GASTRIC LAP BAND (2) Sepsis Code(s): A41.9 - SEPSIS, UNSPECIFIED ORGANISM Qualifiers: Sepsis type: sepsis due to unspecified organism Qualified Code(s): A41.9 - Sepsis, unspecified organism (3) Hx of cervical cancer Assessment/Plan: MESH PLACED YEARS AGO, POSSIBLE INFECTION Code(s): Z85.41 - PERSONAL HISTORY OF MALIGNANT NEOPLASM OF CERVIX UTERI Assessment/Plan POD EXPLORATORY LAP/LAPBAND REMOVAL PUS AND PURELENT DISCHARGE PER SURGERY SEEN DURING SURGERY EGD NORMAL PELVIC INFECTION SOURSE CERVICAL MESH? [employer] AX CONSULTANT CONSULT APPRECIATED -> WILL F/U [employer] AX CONSULTANT RECOMMENDATIONS IV ABX PER ID ESR ELEVATED WBC 11 -> 16 -> MONITOR NO FEVER COMMISSIONS SPECIALIST FM
[2016-09-13] MEDS ORDERED: POTASSIUM CHLORIDE TABS 20 MEQ TABLET.ER (FP) PO ONE (09:56)
[2016-09-13] MEDS: MULTIVITAMINS (DAILY MVI) TABLET (FP) PO SCH (11:25)
[2016-09-13] MEDS: AMINO ACIDS/PROTEIN HYDROLYS 30 ML LIQUID.PKT PO SCH ×2 (11:25→17:47)
[2016-09-13] MEDS: FAMOTIDINE 20 MG/50 ML IVPB 50 ML IVPB SCH ×2 (12:17→22:02)
[2016-09-13 12:52] LABS: METAMYELOCYTE 3 % (0-2)
[2016-09-13 12:53] LABS: HYPOCHROMIA 1+; PLATELET ESTIMATE ADEQUATE (NORMAL); POLYCHROMASIA FEW
--- NOTE | 2016-09-13 15:54 | CONSULT ---
Consult - text type - Consultation Consultation Note: Consult Addendum Case reviewed with Dr. Ruff from radiology CT from 09/08/16 reviewed no pelvic pathology or abscess identified
[2016-09-13] MEDS: ONDANSETRON 4 MG/2 ML VIAL IVPB PRN (19:32)
[2016-09-13] MEDS: SODIUM CHLORIDE 1,000 ML IV SCH (22:25)
[2016-09-14] MEDS: PIPERACILLIN/TAZOB 4.5 GM 100 ML IVPB SCH ×3 (02:25→17:31)
--- NOTE | 2016-09-14 06:24 | PN ---
Progress Note, Physician Chief Complaint: FEELS A LITTLE BETTER STILL HAS ABD PAIN DIARRHEA - Current Medication List Current Medications: Active Medications Acetaminophen (Tylenol -) 650 mg PO Q4H PRN PRN Reason: PAIN LEVEL 6-10 Last Admin: 09/13/16 12:20 Dose: 650 mg Amino Acids (Prosource No Carb Liquid Pkt) 30 ml PO BID@0800,1730 [facility] Last Admin: 09/13/16 17:47 Dose: 30 ml Dexamethasone Sodium Phosphate (Decadron Injection -) 4 mg IVPUSH ONCE PRN PRN Reason: NAUSEA AND/OR VOMITING Diphenhydramine HCl (Benadryl Injection -) 12.5 mg IVPUSH ONCE PRN PRN Reason: FOR ITCHING Diphenhydramine HCl (Benadryl Injection -) 25 mg IVPUSH Q6H PRN Hydromorphone HCl (Dilaudid Injection -) 1 mg IVPB Q3H PRN PRN Reason: PAIN Last Admin: 09/13/16 20:03 Dose: 1 mg Famotidine/Sodium Chloride (Pepcid 20 Mg Premixed Ivpb -) 50 mls @ 100 mls/hr IVPB BID [facility] Last Admin: 09/13/16 22:02 Dose: 100 mls/hr Sodium Chloride (Normal Saline -) 1,000 mls @ 100 mls/hr IV ASDIR [facility] Last Admin: 09/13/16 22:25 Dose: 100 mls/hr Piperacillin Sod/Tazobactam Sod (Zosyn 4.5gm Ivpb (Pre-Docked)) 100 mls @ 200 mls/hr IVPB Q8H-IV [facility]IN PRN Reason: Protocol Last Admin: 09/14/16 02:25 Dose: 200 mls/hr Multivitamins/Minerals/Vitamin C (Tab-A-Vit -) 1 tab PO DAILY [facility] Last Admin: 09/13/16 11:25 Dose: 1 tab Ondansetron HCl (Zofran Injection) 4 mg IVPB Q6H PRN PRN Reason: NAUSEA Last Admin: 09/13/16 19:32 Dose: 4 mg Oxycodone HCl (Roxicodone -) 10 mg PO Q4H PRN PRN Reason: PAIN LEVEL 6-10 Promethazine HCl (Phenergan Injection -) 12.5 mg IVPB Q6H PRN PRN Reason: NAUSEA AND/OR VOMITING Trazodone HCl (Desyrel -) 50 mg PO HS PRN PRN Reason: INSOMNIA Last Admin: 09/11/16 22:51 Dose: 50 mg Trimethobenzamide HCl (Tigan Injection -) 200 mg IM Q8H PRN PRN Reason: NAUSEA - Objective Vital Signs: Vital Signs Temperature 98.3 F 09/13/16 17:05 Pulse Rate 72 09/13/16 17:05 Respiratory Rate 20 09/13/16 21:00 Blood Pressure 154/73 09/13/16 17:05 O2 Sat by Pulse Oximetry (%) 97 09/13/16 21:00 Constitutional: Yes: Calm Neck: Yes: WNL Cardiovascular: Yes: WNL Respiratory: Yes: WNL Gastrointestinal: Yes: Tenderness, Rebound (MILD) Edema: No Labs: CBC, BMP 09/13/16 06:30 09/13/16 06:30 INR, PTT INR 1.36 (0.82-1.09) H 09/10/16 05:05 Problem List - Problems (1) Admission for adjustment of gastric lap band Code(s): Z46.51 - ENCOUNTER FOR FITTING AND ADJUSTMENT OF GASTRIC LAP BAND (2) Hx of cervical cancer Code(s): Z85.41 - PERSONAL HISTORY OF MALIGNANT NEOPLASM OF CERVIX UTERI (3) Sepsis Code(s): A41.9 - SEPSIS, UNSPECIFIED ORGANISM Qualifiers: Sepsis type: sepsis due to unspecified organism Qualified Code(s): A41.9 - Sepsis, unspecified organism Assessment/Plan (1) Admission for adjustment of gastric lap band Code(s): Z46.51 - ENCOUNTER FOR FITTING AND ADJUSTMENT OF GASTRIC LAP BAND (2) Sepsis Code(s): A41.9 - SEPSIS, UNSPECIFIED ORGANISM Qualifiers: Sepsis type: sepsis due to unspecified organism Qualified Code(s): A41.9 - Sepsis, unspecified organism (3) Hx of cervical cancer Assessment/Plan: MESH PLACED YEARS AGO, POSSIBLE INFECTION Code(s): Z85.41 - PERSONAL HISTORY OF MALIGNANT NEOPLASM OF CERVIX UTERI Assessment/Plan POD EXPLORATORY LAP/LAPBAND REMOVAL PUS AND PURELENT DISCHARGE PER SURGERY SEEN DURING SURGERY EGD NORMAL PC MAINTENANCE TECHNICIAN CONSULT APPRECIATED -> no pelvic pathology or abscess identified IV ABX PER ID ESR ELEVATED WBC INCREASING NO FEVER R/O C DIFF CAR BRACER FM
[2016-09-14 08:13] LABS: MCHC 33.3 g/dl (32.0-36.0); MEAN CELL VOLUME 87.1 fl (80-96); MEAN PLT VOLUME 7.2 fl (7.5-11.1); PLATELET COUNT 308 K/MM3 (134-434); RDW 14.6 % (11.6-15.6); WHITE BLOOD COUNT 17.5 K/mm3 (4.0-10.0)
[2016-09-14] MEDS: AMINO ACIDS/PROTEIN HYDROLYS 30 ML LIQUID.PKT PO SCH ×2 (08:38→17:31)
[2016-09-14 08:41] LABS: CALCIUM 7.1 mg/dL (8.5-10.1)
[2016-09-14 08:47] LABS: ALBUMIN 1.5 g/dl (3.4-5.0); ALK PHOS 61 U/L (45-117); ANION GAP 11 (8-16); BILIRUBIN,TOTAL 0.5 mg/dL (0.2-1.0); CO2 26 mmol/L (21-32); COCKROFT - GAULT 133.1355; CREATININE 0.5 mg/dL (0.55-1.02); GLUCOSE,RANDOM 78 mg/dL (74-106); SGOT/AST 19 U/L (15-37); SGPT/ALT 30 U/L (12-78); TOT PROT 4.2 g/dl (6.4-8.2)
[2016-09-14] MEDS: FAMOTIDINE 20 MG/50 ML IVPB 50 ML IVPB SCH ×2 (09:00→21:07)
[2016-09-14] MEDS: MULTIVITAMINS (DAILY MVI) TABLET (FP) PO SCH (09:38)
[2016-09-14] MEDS: SODIUM CHLORIDE 1,000 ML IV SCH ×4 (09:40→23:43)
--- NOTE | 2016-09-14 10:39 | PN ---
Progress Note (short form) - Note Progress Note: No acute events No pain Tolerating diet Vital Signs Period Temp Pulse Resp BP Sys/Peng Pulse Ox Last 24 Hr 98.2 F-98.3 F 72-84 20-20 122-154/69-73 97 Abd soft, NT, ADELINA x 2 serosanguinous CBC, BMP 09/14/16 07:00 09/14/16 07:00 Continue antibiotics Diet OOB
--- NOTE | 2016-09-14 11:07 | PN ---
Progress Note, Physician Chief Complaint: ID Patient complains of frequent watery bowel movements. Leukocytosis now since 2 days ago Zosyn empiric for intrabdominal infection. - Current Medication List Current Medications: Active Medications Acetaminophen (Tylenol -) 650 mg PO Q4H PRN PRN Reason: PAIN LEVEL 6-10 Last Admin: 09/13/16 12:20 Dose: 650 mg Amino Acids (Prosource No Carb Liquid Pkt) 30 ml PO BID@0800,1730 [facility] Last Admin: 09/14/16 08:38 Dose: 30 ml Dexamethasone Sodium Phosphate (Decadron Injection -) 4 mg IVPUSH ONCE PRN PRN Reason: NAUSEA AND/OR VOMITING Diphenhydramine HCl (Benadryl Injection -) 12.5 mg IVPUSH ONCE PRN PRN Reason: FOR ITCHING Diphenhydramine HCl (Benadryl Injection -) 25 mg IVPUSH Q6H PRN Hydromorphone HCl (Dilaudid Injection -) 1 mg IVPB Q3H PRN PRN Reason: PAIN Last Admin: 09/13/16 20:03 Dose: 1 mg Famotidine/Sodium Chloride (Pepcid 20 Mg Premixed Ivpb -) 50 mls @ 100 mls/hr IVPB BID [facility] Last Admin: 09/14/16 09:00 Dose: 100 mls/hr Sodium Chloride (Normal Saline -) 1,000 mls @ 100 mls/hr IV ASDIR [facility] Last Admin: 09/14/16 09:40 Dose: Not Given Piperacillin Sod/Tazobactam Sod (Zosyn 4.5gm Ivpb (Pre-Docked)) 100 mls @ 200 mls/hr IVPB Q8H-IV [facility]IN PRN Reason: Protocol Last Admin: 09/14/16 09:39 Dose: 200 mls/hr Multivitamins/Minerals/Vitamin C (Tab-A-Vit -) 1 tab PO DAILY [facility] Last Admin: 09/14/16 09:38 Dose: 1 tab Ondansetron HCl (Zofran Injection) 4 mg IVPB Q6H PRN PRN Reason: NAUSEA Last Admin: 09/13/16 19:32 Dose: 4 mg Oxycodone HCl (Roxicodone -) 10 mg PO Q4H PRN PRN Reason: PAIN LEVEL 6-10 Promethazine HCl (Phenergan Injection -) 12.5 mg IVPB Q6H PRN PRN Reason: NAUSEA AND/OR VOMITING Trazodone HCl (Desyrel -) 50 mg PO HS PRN PRN Reason: INSOMNIA Last Admin: 09/11/16 22:51 Dose: 50 mg Trimethobenzamide HCl (Tigan Injection -) 200 mg IM Q8H PRN PRN Reason: NAUSEA - Objective Vital Signs: Vital Signs Temperature 98.2 F 09/14/16 07:47 Pulse Rate 84 09/14/16 07:47 Respiratory Rate 20 09/14/16 07:47 Blood Pressure 122/69 09/14/16 07:47 O2 Sat by Pulse Oximetry (%) 97 09/13/16 21:00 Constitutional: Yes: No Distress Neck: Yes: WNL, Supple Cardiovascular: Yes: S1, S2 Respiratory: Yes: WNL, Regular, CTA Bilaterally Gastrointestinal: Yes: Soft, Tenderness, Other ([place]) Edema: No Labs: CBC, BMP 09/14/16 07:00 09/14/16 07:00 INR, PTT INR 1.36 (0.82-1.09) H 09/10/16 05:05 Problem List - Problems (1) Sepsis Code(s): A41.9 - SEPSIS, UNSPECIFIED ORGANISM Qualifiers: Sepsis type: sepsis due to unspecified organism Qualified Code(s): A41.9 - Sepsis, unspecified organism (2) Admission for adjustment of gastric lap band Code(s): Z46.51 - ENCOUNTER FOR FITTING AND ADJUSTMENT OF GASTRIC LAP BAND Assessment/Plan Laboratory Tests 09/09/16 09/10/16 09/13/16 19:20 05:05 06:30 WBC 16.1 H D Hgb Hct Plt Count ESR 110 H BUN Creatinine Creat Clearance w eGFR Creatine Kinase 26 09/14/16 09/14/16 07:00 07:00 WBC 17.5 H Hgb 8.3 L Hct 25.0 L Plt Count 308 ESR BUN 4 L D Creatinine 0.5 L Creat Clearance w eGFR > 60 Creatine Kinase Assessment Post removal of gastric band with purulence in the pelvis. Seen by SOLAR CREW MEMBER with no pelvic pathology noted ESR and CRP very high initially. Now with WBC again with complaints of diarrhea raising issue of C diff infection. Plan C diff toxin c/s Add metronidazole orally Repeat ESR and CRP Wilber CABRERA
[2016-09-14 11:11] LABS: ANISOCYTOSIS 1+
[2016-09-14] MEDS: ACETAMINOPHEN 325 MG TABLET (FP) PO PRN ×2 (11:15→19:49)
[2016-09-14 12:38] LABS: C-REACTIVE PROTEIN 8.7 MG/DL (0.00-0.3)
--- NOTE | 2016-09-14 14:14 | PN ---
Progress Note (short form) - Note Progress Note: POD#4 Afebrile VSS Pt unchanged c/o multiple loose BM C.diff negative to this point No N/V No abdominal pain P/E- all incisions healing well drains- sero-sanguinous fluid WBC- 17.5 (increased) H/H- 8.3/25 (no change) P- Agree with CT scan of Abdomen PO soft food as tolerated Antibiotics as per ID Cont DVT prophylaxis [id number]
--- NOTE | 2016-09-14 14:18 | PATH ---
Surgical Pathology Report Patient Name: IAN IRELAND Med. Rec. #: [id number] /Age/Gender: 1970 (Age: 46) / F Account: [id number] Location: [facility] MED/SURG Taken: 09/10/2016 Received: 09/11/2016 Reported: 09/14/2016 Physicians: Sherwin Burns M.D. Specimen(s) Received GASTRIC BAND Clinical History Sepsis Final Diagnosis GASTRIC BAND, REMOVAL: MEDICAL IMAGING SPECIALIST (GROSS EXAM). Electronically Signed Mookie Allen M.D. Gross Description Received fresh labeled "gastric band" are 2 portions of a disrupted white gastric band measuring 5.0 and 7.5 cm in greatest dimensions. The larger portion displays an attached 45 centimeter in length portion of tubing extending from one aspect. Also received within the same container is a 3 cm in diameter x 1.5 cm in depth white, circular device, consistent with a port. The port displays a 13 cm in length portion of tubing extending from one aspect. No soft tissue is present. No sections are submitted, gross only. /09/11/2016 saudi09/11/2016
[2016-09-14] MEDS ORDERED: POTASSIUM CHLORIDE TABS 20 MEQ TABLET.ER (FP) PO ONE (15:00)
[2016-09-14] MEDS: metroNIDAZOLE 250 MG TABLET PO SCH ×2 (15:00→21:06)
[2016-09-15] MEDS: PIPERACILLIN/TAZOB 4.5 GM 100 ML IVPB SCH ×3 (01:06→17:14)
[2016-09-15] MEDS: ONDANSETRON 4 MG/2 ML VIAL IVPB PRN (04:56)
[2016-09-15] MEDS: metroNIDAZOLE 250 MG TABLET PO SCH ×3 (05:44→21:05)
--- NOTE | 2016-09-15 07:00 | PN ---
Progress Note, Physician - Current Medication List Current Medications: Active Medications Acetaminophen (Tylenol -) 650 mg PO Q4H PRN PRN Reason: PAIN LEVEL 6-10 Last Admin: 09/14/16 19:49 Dose: 650 mg Amino Acids (Prosource No Carb Liquid Pkt) 30 ml PO BID@0800,1730 [facility] Last Admin: 09/14/16 17:31 Dose: Not Given Dexamethasone Sodium Phosphate (Decadron Injection -) 4 mg IVPUSH ONCE PRN PRN Reason: NAUSEA AND/OR VOMITING Diphenhydramine HCl (Benadryl Injection -) 12.5 mg IVPUSH ONCE PRN PRN Reason: FOR ITCHING Diphenhydramine HCl (Benadryl Injection -) 25 mg IVPUSH Q6H PRN Hydromorphone HCl (Dilaudid Injection -) 1 mg IVPB Q3H PRN PRN Reason: PAIN Last Admin: 09/13/16 20:03 Dose: 1 mg Famotidine/Sodium Chloride (Pepcid 20 Mg Premixed Ivpb -) 50 mls @ 100 mls/hr IVPB BID [facility] Last Admin: 09/14/16 21:07 Dose: 100 mls/hr Sodium Chloride (Normal Saline -) 1,000 mls @ 100 mls/hr IV ASDIR [facility] Last Admin: 09/14/16 23:43 Dose: 100 mls/hr Piperacillin Sod/Tazobactam Sod (Zosyn 4.5gm Ivpb (Pre-Docked)) 100 mls @ 200 mls/hr IVPB Q8H-IV [facility] PRN Reason: Protocol Last Admin: 09/15/16 01:06 Dose: 200 mls/hr Metronidazole (Flagyl -) 500 mg PO TID [facility] Last Admin: 09/15/16 05:44 Dose: 500 mg Multivitamins/Minerals/Vitamin C (Tab-A-Vit -) 1 tab PO DAILY [facility] Last Admin: 09/14/16 09:38 Dose: 1 tab Ondansetron HCl (Zofran Injection) 4 mg IVPB Q6H PRN PRN Reason: NAUSEA Last Admin: 09/15/16 04:56 Dose: 4 mg Potassium Chloride (K-Dur -) 40 meq PO DAILY [facility] Promethazine HCl (Phenergan Injection -) 12.5 mg IVPB Q6H PRN PRN Reason: NAUSEA AND/OR VOMITING Trazodone HCl (Desyrel -) 50 mg PO HS PRN PRN Reason: INSOMNIA Last Admin: 09/11/16 22:51 Dose: 50 mg Trimethobenzamide HCl (Tigan Injection -) 200 mg IM Q8H PRN PRN Reason: NAUSEA - Objective Vital Signs: Vital Signs Temperature 98.6 F 09/15/16 06:20 Pulse Rate 89 09/15/16 06:20 Respiratory Rate 20 09/15/16 06:20 Blood Pressure 111/64 09/15/16 06:20 O2 Sat by Pulse Oximetry (%) 97 09/14/16 21:00 Neck: Yes: WNL Cardiovascular: Yes: WNL Respiratory: Yes: WNL Gastrointestinal: Yes: Tenderness (IMPROVED) Labs: CBC, BMP 09/14/16 07:00 09/14/16 07:00 INR, PTT INR 1.36 (0.82-1.09) H 09/10/16 05:05 Problem List - Problems (1) Admission for adjustment of gastric lap band Code(s): Z46.51 - ENCOUNTER FOR FITTING AND ADJUSTMENT OF GASTRIC LAP BAND (2) Hx of cervical cancer Code(s): Z85.41 - PERSONAL HISTORY OF MALIGNANT NEOPLASM OF CERVIX UTERI (3) Sepsis Code(s): A41.9 - SEPSIS, UNSPECIFIED ORGANISM Qualifiers: Sepsis type: sepsis due to unspecified organism Qualified Code(s): A41.9 - Sepsis, unspecified organism Assessment/Plan (1) Admission for adjustment of gastric lap band Code(s): Z46.51 - ENCOUNTER FOR FITTING AND ADJUSTMENT OF GASTRIC LAP BAND (2) Sepsis Code(s): A41.9 - SEPSIS, UNSPECIFIED ORGANISM Qualifiers: Sepsis type: sepsis due to unspecified organism Qualified Code(s): A41.9 - Sepsis, unspecified organism (3) Hx of cervical cancer Assessment/Plan: MESH PLACED YEARS AGO, POSSIBLE INFECTION Code(s): Z85.41 - PERSONAL HISTORY OF MALIGNANT NEOPLASM OF CERVIX UTERI Assessment/Plan POD EXPLORATORY LAP/LAPBAND REMOVAL PUS AND PURELENT DISCHARGE PER SURGERY SEEN DURING SURGERY EGD NORMAL GRANT COORDINATOR CONSULT APPRECIATED -> no pelvic pathology or abscess identified IV ABX PER ID ESR ELEVATED WBC INCREASING NO FEVER R/O C DIFF RADIO RECORDER FM
[2016-09-15 08:22] LABS: MCH 28.9 pg (25.7-33.7); MCHC 33.2 g/dl (32.0-36.0); MEAN CELL VOLUME 87.1 fl (80-96); MEAN PLT VOLUME 7.1 fl (7.5-11.1); PLATELET COUNT 374 K/MM3 (134-434); RDW 14.6 % (11.6-15.6); WHITE BLOOD COUNT 20.4 K/mm3 (4.0-10.0)
[2016-09-15 08:47] LABS: ALBUMIN 1.5 g/dl (3.4-5.0); ANION GAP 10 (8-16); CALCIUM 7.1 mg/dL (8.5-10.1); CO2 27 mmol/L (21-32); COCKROFT - GAULT 133.1355; CREATININE 0.5 mg/dL (0.55-1.02); GLUCOSE,RANDOM 77 mg/dL (74-106); SGOT/AST 13 U/L (15-37); SGPT/ALT 24 U/L (12-78)
[2016-09-15] MEDS ORDERED: PT OWN MED DRAWER 7, Y5N ONE ×2 (08:50→10:23)
[2016-09-15 08:51] LABS: ALK PHOS 61 U/L (45-117); BILIRUBIN,TOTAL 0.3 mg/dL (0.2-1.0); TOT PROT 4.5 g/dl (6.4-8.2)
[2016-09-15] MEDS: AMINO ACIDS/PROTEIN HYDROLYS 30 ML LIQUID.PKT PO SCH ×2 (08:54→17:14)
[2016-09-15] MEDS: POTASSIUM CHLORIDE TABS 20 MEQ TABLET.ER (FP) PO SCH (09:10)
[2016-09-15] MEDS: FAMOTIDINE 20 MG/50 ML IVPB 50 ML IVPB SCH ×2 (09:10→21:06)
[2016-09-15] MEDS: MULTIVITAMINS (DAILY MVI) TABLET (FP) PO SCH (09:11)
--- NOTE | 2016-09-15 10:07 | PN ---
Progress Note (short form) - Note Progress Note: POD#5 Afebrile, VSS Pt feels slightly better decreased BM- 2 and still loose, but less so c/o slight nausea yovanny po soft, bland diet- bananas, rice P/E- all incisions healing well 1" 22 gauge needle inserted previous port site- only 3-4 cc removed ( small seroma on CT scan) WBC- 20.0 (increased) H/H- 8.0/24.0 (slight decrease) CT scan- sub Q edema noted Bibasilar pleural effusions (left > right) Small fluid near splenic hilum (?abscess) P- PO as tolerated Increase OOB K+ replacement ID F/U
[2016-09-15 10:20] LABS: HYPOCHROMIA 1+; METAMYELOCYTE 2 % (0-2); PLATELET ESTIMATE ADEQUATE (NORMAL); POLYCHROMASIA 1+
[2016-09-15] MEDS: ACETAMINOPHEN 325 MG TABLET (FP) PO PRN ×2 (10:25→17:27)
[2016-09-15] MEDS: SODIUM CHLORIDE 1,000 ML IV SCH ×3 (10:33→22:15)
--- NOTE | 2016-09-15 14:50 | PN ---
Progress Note (short form) - Note Progress Note: feels tired diarrhea somewhat improved but still present no cdiff sent, started on po flagyl Vital Signs Period Temp Pulse Resp BP Sys/Peng Pulse Ox Last 24 Hr 98.3 F-99.1 F 77-89 16-20 104-130/64-79 97 cor-rrr llungs clear abd soft, +ADELINA (2) with bloody clear fluid ext no edema CBC, BMP 09/15/16 07:15 09/15/16 07:15 ct scan- ?small abscess near spleen Laboratory Tests 09/10/16 09/10/16 09/14/16 05:05 05:05 07:00 ESR 110 H C-Reactive Protein 40.9 H 8.7 H D 09/15/16 07:30 ESR 72 H C-Reactive Protein Current Medications Acetaminophen (Tylenol -) 650 mg PO Q4H PRN PRN Reason: PAIN LEVEL 6-10 Last Admin: 09/15/16 10:25 Dose: 650 mg Amino Acids (Prosource No Carb Liquid Pkt) 30 ml PO BID@0800,1730 [facility] Last Admin: 09/15/16 08:54 Dose: 30 ml Dexamethasone Sodium Phosphate (Decadron Injection -) 4 mg IVPUSH ONCE PRN PRN Reason: NAUSEA AND/OR VOMITING Diphenhydramine HCl (Benadryl Injection -) 12.5 mg IVPUSH ONCE PRN PRN Reason: FOR ITCHING Diphenhydramine HCl (Benadryl Injection -) 25 mg IVPUSH Q6H PRN Hydromorphone HCl (Dilaudid Injection -) 1 mg IVPB Q3H PRN PRN Reason: PAIN Last Admin: 09/13/16 20:03 Dose: 1 mg Famotidine/Sodium Chloride (Pepcid 20 Mg Premixed Ivpb -) 50 mls @ 100 mls/hr IVPB BID [facility] Last Admin: 09/15/16 09:10 Dose: 100 mls/hr Sodium Chloride (Normal Saline -) 1,000 mls @ 100 mls/hr IV ASDIR [facility] Last Admin: 09/15/16 10:33 Dose: 100 mls/hr Piperacillin Sod/Tazobactam Sod (Zosyn 4.5gm Ivpb (Pre-Docked)) 100 mls @ 200 mls/hr IVPB Q8H-IV [facility] PRN Reason: Protocol Last Admin: 09/15/16 10:26 Dose: 200 mls/hr Metronidazole (Flagyl -) 500 mg PO TID [facility] Last Admin: 09/15/16 14:31 Dose: 500 mg Multivitamins/Minerals/Vitamin C (Tab-A-Vit -) 1 tab PO DAILY [facility] Last Admin: 09/15/16 09:11 Dose: 1 tab Ondansetron HCl (Zofran Injection) 4 mg IVPB Q6H PRN PRN Reason: NAUSEA Last Admin: 09/15/16 04:56 Dose: 4 mg Potassium Chloride (K-Dur -) 40 meq PO DAILY [facility] Last Admin: 09/15/16 09:10 Dose: 40 meq Promethazine HCl (Phenergan Injection -) 12.5 mg IVPB Q6H PRN PRN Reason: NAUSEA AND/OR VOMITING Trazodone HCl (Desyrel -) 50 mg PO HS PRN PRN Reason: INSOMNIA Last Admin: 09/11/16 22:51 Dose: 50 mg Trimethobenzamide HCl (Tigan Injection -) 200 mg IM Q8H PRN PRN Reason: NAUSEA Last Admin: 09/15/16 10:26 Dose: 200 mg a/p day #6 zosyn po flagyl added for possible cdiff check stools peritonitis- s/p removal of gastric band and drainage ok intra-abdominal abscess rising WBC repeat ct scan with?small abscess near spleen continue zosyn, check cdiff esr and crp trending down
[2016-09-16] MEDS: ONDANSETRON 4 MG/2 ML VIAL IVPB PRN (00:05)
[2016-09-16] MEDS: PIPERACILLIN/TAZOB 4.5 GM 100 ML IVPB SCH ×3 (02:00→17:15)
[2016-09-16] MEDS: metroNIDAZOLE 250 MG TABLET PO SCH ×2 (05:47→14:39)
--- NOTE | 2016-09-16 06:58 | PN ---
Progress Note, Physician Chief Complaint: USUALLY FOUND SUNKEN INTO BED NO DISTRESS FEELS BETTER AMBULATING NO DIARRHEA - Current Medication List Current Medications: Active Medications Acetaminophen (Tylenol -) 650 mg PO Q4H PRN PRN Reason: PAIN LEVEL 6-10 Last Admin: 09/15/16 17:27 Dose: 650 mg Amino Acids (Prosource No Carb Liquid Pkt) 30 ml PO BID@0800,1730 [facility] Last Admin: 09/15/16 17:14 Dose: 30 ml Dexamethasone Sodium Phosphate (Decadron Injection -) 4 mg IVPUSH ONCE PRN PRN Reason: NAUSEA AND/OR VOMITING Diphenhydramine HCl (Benadryl Injection -) 12.5 mg IVPUSH ONCE PRN PRN Reason: FOR ITCHING Diphenhydramine HCl (Benadryl Injection -) 25 mg IVPUSH Q6H PRN Hydromorphone HCl (Dilaudid Injection -) 1 mg IVPB Q3H PRN PRN Reason: PAIN Last Admin: 09/13/16 20:03 Dose: 1 mg Famotidine/Sodium Chloride (Pepcid 20 Mg Premixed Ivpb -) 50 mls @ 100 mls/hr IVPB BID [facility] Last Admin: 09/15/16 21:06 Dose: 100 mls/hr Sodium Chloride (Normal Saline -) 1,000 mls @ 100 mls/hr IV ASDIR [facility] Last Admin: 09/15/16 22:15 Dose: 100 mls/hr Piperacillin Sod/Tazobactam Sod (Zosyn 4.5gm Ivpb (Pre-Docked)) 100 mls @ 200 mls/hr IVPB Q8H-IV [facility] PRN Reason: Protocol Last Admin: 09/16/16 02:00 Dose: 200 mls/hr Potassium Chloride (Potassium Chloride 10 Meq Premix Ivpb -) 100 mls @ 100 mls/ hr IVPB Q60M [facility] Stop: 09/16/16 07:59 Metronidazole (Flagyl -) 500 mg PO TID [facility] Last Admin: 09/16/16 05:47 Dose: 500 mg Multivitamins/Minerals/Vitamin C (Tab-A-Vit -) 1 tab PO DAILY [facility] Last Admin: 09/15/16 09:11 Dose: 1 tab Ondansetron HCl (Zofran Injection) 4 mg IVPB Q6H PRN PRN Reason: NAUSEA Last Admin: 09/16/16 00:05 Dose: 4 mg Potassium Chloride (K-Dur -) 40 meq PO DAILY [facility] Last Admin: 09/15/16 09:10 Dose: 40 meq Promethazine HCl (Phenergan Injection -) 12.5 mg IVPB Q6H PRN PRN Reason: NAUSEA AND/OR VOMITING Trazodone HCl (Desyrel -) 50 mg PO HS PRN PRN Reason: INSOMNIA Last Admin: 09/11/16 22:51 Dose: 50 mg Trimethobenzamide HCl (Tigan Injection -) 200 mg IM Q8H PRN PRN Reason: NAUSEA Last Admin: 09/15/16 10:26 Dose: 200 mg - Objective Vital Signs: Vital Signs Temperature 98.6 F 09/16/16 06:39 Pulse Rate 82 09/16/16 06:39 Respiratory Rate 18 09/16/16 06:39 Blood Pressure 124/67 09/16/16 06:39 O2 Sat by Pulse Oximetry (%) 97 09/15/16 21:00 Constitutional: Yes: Calm Neck: Yes: WNL Cardiovascular: Yes: WNL Respiratory: Yes: WNL Gastrointestinal: No: Tenderness, Rebound Edema: No Labs: CBC, BMP 09/15/16 07:15 09/15/16 07:15 INR, PTT INR 1.36 (0.82-1.09) H 09/10/16 05:05 Problem List - Problems (1) Admission for adjustment of gastric lap band Code(s): Z46.51 - ENCOUNTER FOR FITTING AND ADJUSTMENT OF GASTRIC LAP BAND (2) Hx of cervical cancer Code(s): Z85.41 - PERSONAL HISTORY OF MALIGNANT NEOPLASM OF CERVIX UTERI (3) Sepsis Code(s): A41.9 - SEPSIS, UNSPECIFIED ORGANISM Qualifiers: Sepsis type: sepsis due to unspecified organism Qualified Code(s): A41.9 - Sepsis, unspecified organism Assessment/Plan (1) Admission for adjustment of gastric lap band Code(s): Z46.51 - ENCOUNTER FOR FITTING AND ADJUSTMENT OF GASTRIC LAP BAND (2) Sepsis Code(s): A41.9 - SEPSIS, UNSPECIFIED ORGANISM Qualifiers: Sepsis type: sepsis due to unspecified organism Qualified Code(s): A41.9 - Sepsis, unspecified organism (3) Hx of cervical cancer Assessment/Plan: MESH PLACED YEARS AGO, POSSIBLE INFECTION Code(s): Z85.41 - PERSONAL HISTORY OF MALIGNANT NEOPLASM OF CERVIX UTERI Assessment/Plan POD EXPLORATORY LAP/LAPBAND REMOVAL PUS AND PURELENT DISCHARGE PER SURGERY SEEN DURING SURGERY 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
[2016-09-16] MEDS ORDERED: KCL 10 MEQ IVPB 100 ML IVPB SCH (07:00)
[2016-09-16 07:45] LABS: MCH 29.4 pg (25.7-33.7); MCHC 33.9 g/dl (32.0-36.0); MEAN CELL VOLUME 86.9 fl (80-96); MEAN PLT VOLUME 6.9 fl (7.5-11.1); PLATELET COUNT 419 K/MM3 (134-434); RDW 14.7 % (11.6-15.6); WHITE BLOOD COUNT 14.8 K/mm3 (4.0-10.0)
[2016-09-16 08:04] LABS: ALBUMIN 1.6 g/dl (3.4-5.0); ANION GAP 10 (8-16); CALCIUM 7.3 mg/dL (8.5-10.1); CO2 26 mmol/L (21-32); GLUCOSE,RANDOM 76 mg/dL (74-106)
[2016-09-16 08:08] LABS: ALK PHOS 58 U/L (45-117); BILIRUBIN,TOTAL 0.4 mg/dL (0.2-1.0); CREATININE 0.6 mg/dL (0.55-1.02); SGOT/AST 16 U/L (15-37); SGPT/ALT 23 U/L (12-78); TOT PROT 4.7 g/dl (6.4-8.2)
[2016-09-16] MEDS: SODIUM CHLORIDE 1,000 ML IV SCH ×2 (09:00→22:13)
[2016-09-16] MEDS: POTASSIUM CHLORIDE TABS 20 MEQ TABLET.ER (FP) PO SCH (09:29)
[2016-09-16] MEDS: MULTIVITAMINS (DAILY MVI) TABLET (FP) PO SCH (09:29)
[2016-09-16] MEDS: AMINO ACIDS/PROTEIN HYDROLYS 30 ML LIQUID.PKT PO SCH ×2 (09:29→17:10)
[2016-09-16] MEDS: ACETAMINOPHEN 325 MG TABLET (FP) PO PRN ×2 (09:29→20:38)
[2016-09-16] MEDS: FAMOTIDINE 20 MG/50 ML IVPB 50 ML IVPB SCH ×2 (09:30→21:51)
[2016-09-16 10:03] LABS: METAMYELOCYTE 1 % (0-2)
[2016-09-16 10:04] LABS: HYPOCHROMIA 1+; PLATELET ESTIMATE ADEQUATE (NORMAL); POLYCHROMASIA 1+
--- NOTE | 2016-09-16 11:05 | PN ---
Progress Note (short form) - Note Progress Note: No acute events Feels better Tolerating diet Vital Signs Period Temp Pulse Resp BP Sys/Peng Pulse Ox Last 24 Hr 98.2 F-98.6 F 82-87 18-20 120-129/67-84 97 Abd soft, ADELINA x 2 serosanguinous CBC, BMP 09/16/16 06:00 09/16/16 06:00 WBC improving Continue antibiotics
--- NOTE | 2016-09-16 16:12 | PN ---
Progress Note (short form) - Note Progress Note: feels better doarrhea improved Vital Signs Period Temp Pulse Resp BP Sys/Peng Pulse Ox Last 24 Hr 97.9 F-98.6 F 75-86 18-20 110-127/67-85 97-97 cor-rrr lungs clear abd soft,nt +ADELINA ext no edema CBC, BMP 09/16/16 06:00 09/16/16 06:[address] scan- ?small abscess near spleen Laboratory Tests 09/10/16 09/10/16 09/14/16 05:05 05:05 07:00 ESR 110 H C-Reactive Protein 40.9 H 8.7 H D 09/15/16 07:30 ESR 72 H C-Reactive Protein Current Medications Acetaminophen (Tylenol -) 650 mg PO Q4H PRN PRN Reason: PAIN LEVEL 6-10 Last Admin: 09/16/16 09:29 Dose: 650 mg Amino Acids (Prosource No Carb Liquid Pkt) 30 ml PO BID@0800,1730 [facility] Last Admin: 09/16/16 09:29 Dose: 30 ml Dexamethasone Sodium Phosphate (Decadron Injection -) 4 mg IVPUSH ONCE PRN PRN Reason: NAUSEA AND/OR VOMITING Diphenhydramine HCl (Benadryl Injection -) 12.5 mg IVPUSH ONCE PRN PRN Reason: FOR ITCHING Diphenhydramine HCl (Benadryl Injection -) 25 mg IVPUSH Q6H PRN Hydromorphone HCl (Dilaudid Injection -) 1 mg IVPB Q3H PRN PRN Reason: PAIN Last Admin: 09/13/16 20:03 Dose: 1 mg Famotidine/Sodium Chloride (Pepcid 20 Mg Premixed Ivpb -) 50 mls @ 100 mls/hr IVPB BID [facility] Last Admin: 09/16/16 09:30 Dose: 100 mls/hr Sodium Chloride (Normal Saline -) 1,000 mls @ 100 mls/hr IV ASDIR [facility] Last Admin: 09/15/16 22:15 Dose: 100 mls/hr Piperacillin Sod/Tazobactam Sod (Zosyn 4.5gm Ivpb (Pre-Docked)) 100 mls @ 200 mls/hr IVPB Q8H-IV [facility] PRN Reason: Protocol Last Admin: 09/16/16 09:30 Dose: 200 mls/hr Metronidazole (Flagyl -) 500 mg PO TID [facility] Last Admin: 09/16/16 14:39 Dose: 500 mg Multivitamins/Minerals/Vitamin C (Tab-A-Vit -) 1 tab PO DAILY [facility] Last Admin: 09/16/16 09:29 Dose: 1 tab Ondansetron HCl (Zofran Injection) 4 mg IVPB Q6H PRN PRN Reason: NAUSEA Last Admin: 09/16/16 00:05 Dose: 4 mg Potassium Chloride (K-Dur -) 40 meq PO DAILY [facility] Last Admin: 09/16/16 09:29 Dose: 40 meq Promethazine HCl (Phenergan Injection -) 12.5 mg IVPB Q6H PRN PRN Reason: NAUSEA AND/OR VOMITING Trazodone HCl (Desyrel -) 50 mg PO HS PRN PRN Reason: INSOMNIA Last Admin: 09/11/16 22:51 Dose: 50 mg Trimethobenzamide HCl (Tigan Injection -) 200 mg IM Q8H PRN PRN Reason: NAUSEA Last Admin: 09/15/16 10:26 Dose: 200 mg a/p day #7 zosyn peritonitis- s/p removal of gastric band and drainage ok intra-abdominal abscess wbc improving repeat ct scan with?small abscess near spleen continue zosyn, d/c po flagyl, cdiff negative esr and crp trending down
[2016-09-16] MEDS: traZODone HCL 50 MG TABLET (FP) PO PRN (22:13)
[2016-09-17] MEDS: PIPERACILLIN/TAZOB 4.5 GM 100 ML IVPB SCH ×3 (02:09→17:04)
[2016-09-17] MEDS: ACETAMINOPHEN 325 MG TABLET (FP) PO PRN ×2 (05:50→09:55)
--- NOTE | 2016-09-17 06:40 | PN ---
Progress Note, Physician - Current Medication List Current Medications: Active Medications Acetaminophen (Tylenol -) 650 mg PO Q4H PRN PRN Reason: PAIN LEVEL 6-10 Last Admin: 09/17/16 05:50 Dose: 650 mg Amino Acids (Prosource No Carb Liquid Pkt) 30 ml PO BID@0800,1730 [facility] Last Admin: 09/16/16 17:10 Dose: 30 ml Dexamethasone Sodium Phosphate (Decadron Injection -) 4 mg IVPUSH ONCE PRN PRN Reason: NAUSEA AND/OR VOMITING Diphenhydramine HCl (Benadryl Injection -) 12.5 mg IVPUSH ONCE PRN PRN Reason: FOR ITCHING Diphenhydramine HCl (Benadryl Injection -) 25 mg IVPUSH Q6H PRN Hydromorphone HCl (Dilaudid Injection -) 1 mg IVPB Q3H PRN PRN Reason: PAIN Last Admin: 09/13/16 20:03 Dose: 1 mg Famotidine/Sodium Chloride (Pepcid 20 Mg Premixed Ivpb -) 50 mls @ 100 mls/hr IVPB BID [facility] Last Admin: 09/16/16 21:51 Dose: 100 mls/hr Sodium Chloride (Normal Saline -) 1,000 mls @ 100 mls/hr IV ASDIR [facility] Last Admin: 09/16/16 22:13 Dose: 100 mls/hr Piperacillin Sod/Tazobactam Sod (Zosyn 4.5gm Ivpb (Pre-Docked)) 100 mls @ 200 mls/hr IVPB Q8H-IV [facility] PRN Reason: Protocol Last Admin: 09/17/16 02:09 Dose: 200 mls/hr Multivitamins/Minerals/Vitamin C (Tab-A-Vit -) 1 tab PO DAILY [facility] Last Admin: 09/16/16 09:29 Dose: 1 tab Ondansetron HCl (Zofran Injection) 4 mg IVPB Q6H PRN PRN Reason: NAUSEA Last Admin: 09/16/16 00:05 Dose: 4 mg Potassium Chloride (K-Dur -) 40 meq PO DAILY [facility] Last Admin: 09/16/16 09:29 Dose: 40 meq Promethazine HCl (Phenergan Injection -) 12.5 mg IVPB Q6H PRN PRN Reason: NAUSEA AND/OR VOMITING Trazodone HCl (Desyrel -) 50 mg PO HS PRN PRN Reason: INSOMNIA Last Admin: 09/16/16 22:13 Dose: 50 mg Trimethobenzamide HCl (Tigan Injection -) 200 mg IM Q8H PRN PRN Reason: NAUSEA Last Admin: 09/15/16 10:26 Dose: 200 mg - Objective Vital Signs: Vital Signs Temperature 97.7 F 09/17/16 06:06 Pulse Rate 77 09/17/16 06:06 Respiratory Rate 18 09/17/16 06:06 Blood Pressure 119/70 09/17/16 06:06 O2 Sat by Pulse Oximetry (%) 96 09/16/16 22:00 Constitutional: Yes: Calm Neck: Yes: WNL Cardiovascular: Yes: WNL Respiratory: Yes: WNL Gastrointestinal: Yes: Tenderness Labs: CBC, BMP 09/16/16 06:00 09/16/16 06:00 INR, PTT INR 1.36 (0.82-1.09) H 09/10/16 05:05 Problem List - Problems (1) Admission for adjustment of gastric lap band Code(s): Z46.51 - ENCOUNTER FOR FITTING AND ADJUSTMENT OF GASTRIC LAP BAND (2) Hx of cervical cancer Code(s): Z85.41 - PERSONAL HISTORY OF MALIGNANT NEOPLASM OF CERVIX UTERI (3) Sepsis Code(s): A41.9 - SEPSIS, UNSPECIFIED ORGANISM Qualifiers: Sepsis type: sepsis due to unspecified organism Qualified Code(s): A41.9 - Sepsis, unspecified organism Assessment/Plan (1) Admission for adjustment of gastric lap band Code(s): Z46.51 - ENCOUNTER FOR FITTING AND ADJUSTMENT OF GASTRIC LAP BAND (2) Sepsis Code(s): A41.9 - SEPSIS, UNSPECIFIED ORGANISM Qualifiers: Sepsis type: sepsis due to unspecified organism Qualified Code(s): A41.9 - Sepsis, unspecified organism (3) Hx of cervical cancer Assessment/Plan: MESH PLACED YEARS AGO, POSSIBLE INFECTION Code(s): Z85.41 - PERSONAL HISTORY OF MALIGNANT NEOPLASM OF CERVIX UTERI Assessment/Plan POD EXPLORATORY LAP/LAPBAND REMOVAL PUS AND PURELENT DISCHARGE PER SURGERY SEEN DURING SURGERY 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
[2016-09-17] MEDS ORDERED: PT OWN MED DRAWER 7, Y5N ONE (06:45)
[2016-09-17 08:36] LABS: MCH 30.7 pg (25.7-33.7); MCHC 34.5 g/dl (32.0-36.0); MEAN CELL VOLUME 89.1 fl (80-96); MEAN PLT VOLUME 7.1 fl (7.5-11.1); PLATELET COUNT 479 K/MM3 (134-434); RDW 15.2 % (11.6-15.6); WHITE BLOOD COUNT 17.5 K/mm3 (4.0-10.0)
[2016-09-17] MEDS: AMINO ACIDS/PROTEIN HYDROLYS 30 ML LIQUID.PKT PO SCH ×2 (08:47→17:05)
[2016-09-17] MEDS: POTASSIUM CHLORIDE TABS 20 MEQ TABLET.ER (FP) PO SCH (09:05)
[2016-09-17] MEDS: SODIUM CHLORIDE 1,000 ML IV SCH ×2 (09:05→20:44)
[2016-09-17] MEDS: MULTIVITAMINS (DAILY MVI) TABLET (FP) PO SCH (09:06)
[2016-09-17 09:30] LABS: ALBUMIN 1.6 g/dl (3.4-5.0); ANION GAP 7 (8-16); BILIRUBIN,TOTAL 0.3 mg/dL (0.2-1.0); CALCIUM 7.1 mg/dL (8.5-10.1); CO2 24 mmol/L (21-32); CREATININE 0.6 mg/dL (0.55-1.02); GLUCOSE,RANDOM 79 mg/dL (74-106); SGPT/ALT 20 U/L (12-78); TOT PROT 4.7 g/dl (6.4-8.2)
[2016-09-17 09:40] LABS: ALK PHOS 60 U/L (45-117); SGOT/AST 14 U/L (15-37)
[2016-09-17] MEDS: FAMOTIDINE 20 MG/50 ML IVPB 50 ML IVPB SCH ×2 (09:53→22:32)
--- NOTE | 2016-09-17 10:15 | PN ---
Progress Note, Physician Chief Complaint: ID NO fever generally feeling well Zosyn - Current Medication List Current Medications: Active Medications Acetaminophen (Tylenol -) 650 mg PO Q4H PRN PRN Reason: PAIN LEVEL 6-10 Last Admin: 09/17/16 09:55 Dose: 650 mg Amino Acids (Prosource No Carb Liquid Pkt) 30 ml PO BID@0800,1730 [facility] Last Admin: 09/17/16 08:47 Dose: 30 ml Dexamethasone Sodium Phosphate (Decadron Injection -) 4 mg IVPUSH ONCE PRN PRN Reason: NAUSEA AND/OR VOMITING Diphenhydramine HCl (Benadryl Injection -) 12.5 mg IVPUSH ONCE PRN PRN Reason: FOR ITCHING Diphenhydramine HCl (Benadryl Injection -) 25 mg IVPUSH Q6H PRN Hydromorphone HCl (Dilaudid Injection -) 1 mg IVPB Q3H PRN PRN Reason: PAIN Last Admin: 09/13/16 20:03 Dose: 1 mg Famotidine/Sodium Chloride (Pepcid 20 Mg Premixed Ivpb -) 50 mls @ 100 mls/hr IVPB BID [facility] Last Admin: 09/17/16 09:53 Dose: 100 mls/hr Sodium Chloride (Normal Saline -) 1,000 mls @ 100 mls/hr IV ASDIR [facility] Last Admin: 09/17/16 09:05 Dose: 100 mls/hr Piperacillin Sod/Tazobactam Sod (Zosyn 4.5gm Ivpb (Pre-Docked)) 100 mls @ 200 mls/hr IVPB Q8H-IV [facility] PRN Reason: Protocol Last Admin: 09/17/16 09:06 Dose: 200 mls/hr Multivitamins/Minerals/Vitamin C (Tab-A-Vit -) 1 tab PO DAILY [facility] Last Admin: 09/17/16 09:06 Dose: 1 tab Ondansetron HCl (Zofran Injection) 4 mg IVPB Q6H PRN PRN Reason: NAUSEA Last Admin: 09/16/16 00:05 Dose: 4 mg Potassium Chloride (K-Dur -) 40 meq PO DAILY [facility] Last Admin: 09/17/16 09:05 Dose: 40 meq Promethazine HCl (Phenergan Injection -) 12.5 mg IVPB Q6H PRN PRN Reason: NAUSEA AND/OR VOMITING Trazodone HCl (Desyrel -) 50 mg PO HS PRN PRN Reason: INSOMNIA Last Admin: 09/16/16 22:13 Dose: 50 mg Trimethobenzamide HCl (Tigan Injection -) 200 mg IM Q8H PRN PRN Reason: NAUSEA Last Admin: 09/15/16 10:26 Dose: 200 mg - Objective Vital Signs: Vital Signs Temperature 98.2 F 09/17/16 08:59 Pulse Rate 88 09/17/16 08:59 Respiratory Rate 18 09/17/16 08:59 Blood Pressure 119/74 09/17/16 08:59 O2 Sat by Pulse Oximetry (%) 96 09/16/16 22:00 Constitutional: Yes: Well Nourished, No Distress Neck: Yes: WNL, Supple Cardiovascular: Yes: S1, S2 Respiratory: Yes: WNL, Regular, CTA Bilaterally Gastrointestinal: Yes: WNL, Normal Bowel Sounds, Soft, Tenderness, Other (2 dains) Labs: CBC, BMP 09/17/16 06:00 09/17/16 06:00 INR, PTT INR 1.36 (0.82-1.09) H 09/10/16 05:05 Problem List - Problems (1) Sepsis Code(s): A41.9 - SEPSIS, UNSPECIFIED ORGANISM Qualifiers: Sepsis type: sepsis due to unspecified organism Qualified Code(s): A41.9 - Sepsis, unspecified organism (2) Admission for adjustment of gastric lap band Code(s): Z46.51 - ENCOUNTER FOR FITTING AND ADJUSTMENT OF GASTRIC LAP BAND Assessment/Plan Laboratory Tests 09/14/16 09/15/16 09/17/16 07:00 07:30 06:00 WBC 17.5 H Hgb 8.4 L Hct 24.3 L Plt Count 479 H ESR 72 H BUN Creatinine C-Reactive Protein 8.7 H D 09/17/16 06:00 WBC Hgb Hct Plt Count ESR BUN 6 L Creatinine 0.6 C-Reactive Protein As discussed with Dr Ware 1. Drains to be removed 2. Zosyn today 3. Discharge possible tomorrow on Augmentin 4. Outpt f/u with CBC ESR and CRP 5. Reimage CT scan if WBC platelets remains outpt Wilber CABRERA
[2016-09-17 11:51] LABS: METAMYELOCYTE 1 % (0-2); PLATELET ESTIMATE INCREASED (NORMAL)
[2016-09-18] MEDS: PIPERACILLIN/TAZOB 4.5 GM 100 ML IVPB SCH ×2 (01:33→09:26)
--- NOTE | 2016-09-18 07:14 | DS ---
Physical Examination Vital Signs: Vital Signs Temperature 98.4 F 09/18/16 06:00 Pulse Rate 86 09/18/16 06:00 Respiratory Rate 20 09/18/16 06:00 Blood Pressure 120/71 09/18/16 06:00 O2 Sat by Pulse Oximetry (%) 97 09/17/16 21:00 Findings/Remarks: NO MORE DIARRHEA DRAIN REMOVED ANXIOUS TO GO HOME GRATEFUL Constitutional: Yes: Calm Neck: Yes: WNL Cardiovascular: Yes: WNL Respiratory: Yes: WNL Gastrointestinal: Yes: WNL Edema: No Labs: CBC, BMP 09/17/16 06:00 09/17/16 06:00 Discharge Summary Reason For Visit: SEPSIS Current Active Problems Admission for adjustment of gastric lap band (Acute) Gastric band slippage (Acute) Hx of cervical cancer (Acute) Intra-abdominal abscess (Acute) Peritonitis of undetermined cause (Acute) Sepsis (Acute) Hospital Course: (1) Admission for adjustment of gastric lap band Code(s): Z46.51 - ENCOUNTER FOR FITTING AND ADJUSTMENT OF GASTRIC LAP BAND (2) Sepsis Code(s): A41.9 - SEPSIS, UNSPECIFIED ORGANISM Qualifiers: Sepsis type: sepsis due to unspecified organism Qualified Code(s): A41.9 - Sepsis, unspecified organism (3) Hx of cervical cancer Assessment/Plan: MESH PLACED YEARS AGO, POSSIBLE INFECTION Code(s): Z85.41 - PERSONAL HISTORY OF MALIGNANT NEOPLASM OF CERVIX UTERI Assessment/Plan POD EXPLORATORY LAP/LAPBAND REMOVAL PUS AND PURELENT DISCHARGE PER SURGERY SEEN DURING SURGERY EGD 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 -> no pelvic pathology or abscess identified C DIFF NEG WBC IMPROVING ON IV ABX PER ID PO ABx NO FEVER CULTURES NEG DRAINS REMOVED DISCHARGE NEED PCP F/U IN 1 WEEK NURSE LIAISON FM Condition: Stable - Instructions Disposition: HOME - Home Medications Comprehensive Discharge Medication List: Ambulatory Orders Ascorbic Acid [Vitamin C -] 500 mg PO DAILY 01/01/15 Calcium Carbonate/Vitamin D3 [Calcium 600 with Vit D Tab] 1 each PO DAILY Krill/Om-3/Dha/Epa/Phospho/Ast [Krill Oil 500 mg Softgel] 1 each PO DAILY Multivitamins [Tab-A-Vit -] 1 tab PO DAILY 01/01/15 Vitamin E 1,000 unit PO DAILY 01/01/15 Oxycodone HCl/Acetaminophen [Percocet 5-325 mg Tablet] 1 tab PO Q6H PRN #20 tablet MDD 4 01/27/16 Famotidine [Pepcid] 20 mg PO BID #60 tablet 09/10/16 Oxycodone HCl/Acetaminophen [Percocet 5-325 mg Tablet] 1 - 2 tab PO Q6H #28 tab MDD 4 09/10/16
[2016-09-18] MEDS: AMINO ACIDS/PROTEIN HYDROLYS 30 ML LIQUID.PKT PO SCH (08:08)
[2016-09-18 08:15] LABS: BASOPHIL 0.5 % (0-2.0); EOSINOPHIL 2.2 % (0-4.5); MCH 29.8 pg (25.7-33.7); MEAN CELL VOLUME 87.5 fl (80-96); MEAN PLT VOLUME 6.8 fl (7.5-11.1); NEUTROPHILS 72.4 % (42.8-82.8); PLATELET COUNT 561 K/MM3 (134-434); RDW 14.9 % (11.6-15.6); WHITE BLOOD COUNT 11.9 K/mm3 (4.0-10.0)
[2016-09-18 08:26] VITALS: BP 127/81; PULSE 83; TEMP 98.2
[2016-09-18 08:41] LABS: ALBUMIN 1.7 g/dl (3.4-5.0); ANION GAP 7 (8-16); CALCIUM 7.5 mg/dL (8.5-10.1); CO2 25 mmol/L (21-32); GLUCOSE,RANDOM 73 mg/dL (74-106)
[2016-09-18 08:45] LABS: ALK PHOS 89 U/L (45-117); BILIRUBIN,TOTAL 0.5 mg/dL (0.2-1.0); CREATININE 0.7 mg/dL (0.55-1.02); SGOT/AST 30 U/L (15-37); SGPT/ALT 31 U/L (12-78)
[2016-09-18] MEDS: POTASSIUM CHLORIDE TABS 20 MEQ TABLET.ER (FP) PO SCH (09:29)
[2016-09-18] MEDS: MULTIVITAMINS (DAILY MVI) TABLET (FP) PO SCH (09:29)
[2016-09-18] MEDS: FAMOTIDINE 20 MG/50 ML IVPB 50 ML IVPB SCH (09:31)
[2016-09-18] MEDS: ACETAMINOPHEN 325 MG TABLET (FP) PO PRN (11:57)
--- NOTE | 2016-09-18 13:48 | PN ---
Progress Note (short form) - Note Progress Note: Afebrile, VSS Pt doing well Neptali PO regular diet No N/V No diarrhea WBC-11.9 H/H- 8.2/24/2 P/E- all trocar sites clean, dry Drain sites- dry Rec- Agree with D/C home Antibiotics as per ID F/U Bariatric Surgery in 6 days
== END 2016-09-18 14:01 | disposition home or self-care (01) | DRG 907 ==
LOC: JICU 17:51 → J8W 09-11 20:32
PROVIDERS: ADMIT Family Medicine; ATTEND Family Medicine
PROC: 0DNW4ZZ Release Peritoneum, Percutaneous Endoscopic Approach (ICD-10-PCS; 2016-09-10)
PROC: 0D9W40Z Drainage of Peritoneum with Drainage Device, Percutaneous Endoscopic Approach (ICD-10-PCS; 2016-09-10)
PROC: 0DJ08ZZ Inspection of Upper Intestinal Tract, Via Natural or Artificial Opening Endoscopic (ICD-10-PCS; 2016-09-10)
PROC: 30233N1 Transfusion of Nonautologous Red Blood Cells into Peripheral Vein, Percutaneous Approach (ICD-10-PCS; 2016-09-10)
PROC: 0DP64CZ Removal of Extraluminal Device from Stomach, Percutaneous Endoscopic Approach (ICD-10-PCS; principal; 2016-09-10 12:30)
DX: T85.79XA Infection and inflammatory reaction due to other internal prosthetic devices, implants and grafts, initial encounter (principal); A41.89 Other specified sepsis; K65.1 Peritoneal abscess; K65.9 Peritonitis, unspecified; N17.9 Acute kidney failure, unspecified; E87.2 Acidosis; K95.09 Other complications of gastric band procedure; K95.01 Infection due to gastric band procedure; J90 Pleural effusion, not elsewhere classified; R10.13 Epigastric pain; K66.0 Peritoneal adhesions (postprocedural) (postinfection); Y84.8 Other medical procedures as the cause of abnormal reaction of the patient, or of later complication, without mention of misadventure at the time of the procedure; Z98.84 Bariatric surgery status; Z85.41 Personal history of malignant neoplasm of cervix uteri; Z87.891 Personal history of nicotine dependence; E86.0 Dehydration; R00.0 Tachycardia, unspecified
CPT/HCPCS: 36415; 36430; 74000-TC; 74178-TC; 74241-TC; 80048; 80053; 81003; 81015; 82150; 82550; 83605; 83690; 83735; 83880; 84100; 84484; 85025; 85027; 85610; 85651; 85730; 86140; 86850; 86870; 86900; 86901; 86902; 86922; 87040; 87086; 87177; 87205; 87209; 87324; 87328; 87329; 87449; 88300-TC; 94760; 97116-GP; 97161-GP; P9038; P9058; Q9967